=== PATIENT | female | born 1935 | race African-American/Black ===

== ENCOUNTER 2019-01-08 18:46 | Inpatient (IN) | payer MEDICARE, OTHER ==
[~2019-01-08] VITALS: Ht 165.1 cm; Wt 66.7 kg
[~2019-01-08 18:46] MED LIST: ACETAMINOPHEN-1 EAC1 ORAL; ALLOPURINOL5 GM; AMLODIPINE-ATO1 EAC4 ORAL; CALCITRIOL1 MCG/1 ML IV; CEPHALEXIN500 MG ORAL; CLOPIDOGREL75 MG ORAL; DOCUSATE SODIU100 M2 ORAL; LEVOTHYROXINE200 MCG IV; PRAVASTATIN SOD40 M1 ORAL; PROCRIT20000 UNI2 SUBQ
--- NOTE | 2019-01-08 18:50 | NUR ---
ED Nurse Note: Patient brought in by RA [id number] from home c/o increased weakness after dialysis today, Permacath on right upper chest noted. Pt aox4, placed on hospital gown , cont rn cardiac rehab shows afib, and cont pulse ox; pt on room air, saturating 100%; no acute respiratory distress noted at this time. Dialysis schedule MWF per patient. Bilateral lower legs edema noted. IV established on left AC, blood collected and sent down to lab. Will continue to monitor.
--- NOTE | 2019-01-08 18:50 | Emergency Room Report ---
History of Present Illness General Chief Complaint: Generalized Weakness Source: Patient Present Illness HPI 83-year-old female history of dialysis Tuesday presents with generalized weakness today after dialysis no fevers no chills no chest pain she does endorse feeling a little more tired than usual unknown aggravating relieving factors severity is mild, constant patient was brought in by EMS for evaluation Allergies: Coded Allergies: PENICILLINS (Unverified Allergy, Unknown, 10/29/17) Uncoded Allergies: PENICILLIN (Allergy, Unknown, 10/28/17) Patient History Past Medical History: see triage record Last Menstrual Period: n/a Reviewed Nursing Documentation: PMH: Agreed; PSxH: Agreed Nursing Documentation-PMH Past Medical History: No History, Except For Hx Cardiac Problems: Yes - CHF, hyperparathyroidism, hypertriglyceridemia Hx Hypertension: Yes - HTN Hx Diabetes: Yes - Type 2 Hx Cancer: No Hx Gastrointestinal Problems: Yes - Diverticulitis, colon, H.Pylori Hx Neurological Problems: Yes - carpal tunnel syndrome Review of Systems All Other Systems: negative except mentioned in HPI Physical Exam Vital Signs Date Time Temp Pulse Resp B/P (MAP) Pulse Ox O2 Delivery O2 Flow Rate FiO2 01/08/19 18:38 98.2 83 18 138/53 (81) 96 Room Air Sp02 EP Interpretation: reviewed, normal General Appearance: well appearing, no apparent distress, alert Head: normocephalic, atraumatic Eyes: bilateral eye PERRL, bilateral eye EOMI ENT: uvula midline, moist mucus membranes Neck: supple, thyroid normal, supple/symm/no masses Respiratory: lungs clear, no respiratory distress, no retraction, no accessory muscle use Cardiovascular #1: normal peripheral pulses, regular rate, rhythm, no edema, no gallop, no murmur Gastrointestinal: non tender, soft, no guarding, no rebound Musculoskeletal: normal inspection Neurologic: alert, oriented x3 Psychiatric: mood/affect normal Skin: no rash, warm/dry Medical Decision Making Diagnostic Impression: Primary Impression: Episode of generalized weakness Additional Impressions: Symptomatic anemia UTI (urinary tract infection) Qualified Codes: N30.00 - Acute cystitis without hematuria ER Course 83-year-old female presents with generalized weakness of unspecified origin differential diagnosis includes sepsis, UTI, ACS Patient found to have low hemoglobin of 7.1, will transfuse Patient instantly also found to have a UTI will provide ceftriaxone Patient tolerated ceftriaxone dose small fluid bolus of 250 mL Patient admitted to Dr. Wiley Laboratory Tests Test 01/08/19 18:55 01/08/19 19:18 01/08/19 20:40 White Blood Count 4.6 K/UL (4.8-10.8) L Red Blood Count 1.98 M/UL (4.20-5.40) L Hemoglobin 7.2 G/DL (12.0-16.0) L Hematocrit 20.3 % (37.0-47.0) L Mean Corpuscular Volume 103 FL (80-99) H Mean Corpuscular Hemoglobin 36.6 PG (27.0-31.0) H Mean Corpuscular Hemoglobin Concent 35.6 G/DL (32.0-36.0) Red Cell Distribution Width 12.5 % (11.6-14.8) Platelet Count 189 K/UL (150-450) Mean Platelet Volume 6.4 FL (6.5-10.1) L Neutrophils (%) (Auto) 73.6 % (45.0-75.0) Lymphocytes (%) (Auto) 16.1 % (20.0-45.0) L Monocytes (%) (Auto) 7.8 % (1.0-10.0) Eosinophils (%) (Auto) 1.5 % (0.0-3.0) Basophils (%) (Auto) 1.1 % (0.0-2.0) Sodium Level 140 MMOL/L (136-145) Potassium Level 3.9 MMOL/L (3.5-5.1) Chloride Level 99 MMOL/L (98-107) Carbon Dioxide Level 34 MMOL/L (21-32) H Anion Gap 7 mmol/L (5-15) Blood Urea Nitrogen 23 mg/dL (7-18) H Creatinine 2.7 MG/DL (0.55-1.30) H Estimate Glomerular Filtration Rate mL/min (>60) Glucose Level 174 MG/DL (74-106) H Lactic Acid Level 2.30 mmol/L (0.4-2.0) H Pending Calcium Level 8.1 MG/DL (8.5-10.1) L Total Bilirubin 0.7 MG/DL (0.2-1.0) Aspartate Amino Transferase (AST) 120 U/L (15-37) H Alanine Aminotransferase (ALT) 30 U/L (12-78) Alkaline Phosphatase 104 U/L (46-116) Troponin I 0.029 ng/mL (0.000-0.056) Total Protein 7.3 G/DL (6.4-8.2) Albumin 3.5 G/DL (3.4-5.0) Globulin 3.8 g/dL Albumin/Globulin Ratio 0.9 (1.0-2.7) L Lipase 133 U/L (73-393) Urine Color Yellow Urine Appearance Turbid Urine pH 7 (4.5-8.0) Urine Specific [place] 1.005 (1.005-1.035) Urine Protein 4+ (NEGATIVE) H Urine Glucose (UA) Negative (NEGATIVE) Urine Ketones 1+ (NEGATIVE) H Urine Blood 5+ (NEGATIVE) H Urine Nitrite Negative (NEGATIVE) Urine Bilirubin Negative (NEGATIVE) Urine Urobilinogen Normal MG/DL (0.0-1.0) Urine Leukocyte Esterase 3+ (NEGATIVE) H Urine RBC Tntc /HPF (0 - 2) H Urine WBC Tntc /HPF (0 - 2) H Urine Squamous Epithelial Cells Few /LPF (NONE/OCC) Urine Bacteria Many /HPF (NONE) H EKG Diagnostic Results EKG Time: 19:03 EP Interpretation: NSR, rate 91, QTc 4 6-year-old, no acute ST elevations, normal axis Rhythm Strip Diag. Results Rhythm Strip Time: 21:14 EP Interpretation: yes Rate: 84 Rhythm: NSR, no PVC's, no ectopy Chest X-Ray Diagnostic Results Chest X-Ray Diagnostic Results : Chest X-Ray Ordered: Yes # of Views/Limited/Complete: 1 View Indication: Shortness of Breath EP Interpretation: Yes Interpretation: no consolidation, no pneumothorax, no acute cardiopulmonary disease Impression: No acute disease Electronically Signed by: Zac Pruitt MD Last Vital Signs Date Time Temp Pulse Resp B/P (MAP) Pulse Ox O2 Delivery O2 Flow Rate FiO2 01/08/19 18:38 98.2 83 18 138/53 (81) 96 Room Air Disposition: ADMITTED INPATIENT Condition: Stable Zac Pruitt MD Jan 08, 2019 18:50
--- NOTE | 2019-01-08 18:55 | NUR ---
ED Nurse Note: xray at bedside.
[2019-01-08 18:59] VITALS: BP 113/51
--- NOTE | 2019-01-08 19:05 | NUR ---
ED Nurse Note: received patient from promise negrete. patient resting comfortably in bed with no acute distress. ao4. nad. vss. ertech at bedside for ecg. blood collected; sent down to lab. respirations even and unlabored. iv intact and patent. denies pain at the moment.
--- NOTE | 2019-01-08 19:05 | NUR ---
HAND-OFF: Report given to Han Lemons RN.
--- NOTE | 2019-01-08 19:15 | NUR ---
ED Nurse Note: mrsa vre cre swab, urine collected; sent down to lab.
[2019-01-08 19:33] LABS: ANION GAP 7 mmol/L (5-15); BLOOD UREA NITROGEN 23 mg/dL (7-18); CALCIUM 8.1 MG/DL (8.5-10.1); CARBON DIOXIDE 34 MMOL/L (21-32); CHLORIDE 99 MMOL/L (98-107); CREATININE 2.7 MG/DL (0.55-1.30); POTASSIUM 3.9 MMOL/L (3.5-5.1); SODIUM 140 MMOL/L (136-145)
[2019-01-08 19:37] LABS: ALANINE AMINOTRANSFERASE 30 U/L (12-78); ALBUMIN 3.5 G/DL (3.4-5.0); ALBUMIN/GLOBULIN RATIO 0.9 (1.0-2.7); ALKALINE PHOSPHATASE 104 U/L (46-116); ASPARTATE AMINO TRANSFERASE 120 U/L (15-37); BILIRUBIN,TOTAL 0.7 MG/DL (0.2-1.0)
[2019-01-08 19:56] LABS: HEMATOCRIT 20.3 % (37.0-47.0); HEMOGLOBIN 7.2 G/DL (12.0-16.0); MEAN CORPUSCULAR VOLUME 103 FL (80-99); PLATELET COUNT 189 K/UL (150-450); RED BLOOD COUNT 1.98 M/UL (4.20-5.40); RED CELL DISTRIBUTION WIDTH 12.5 % (11.6-14.8); WHITE BLOOD COUNT 4.6 K/UL (4.8-10.8)
[2019-01-08 19:58] LABS: APPEARANCE,URINE TURBID; BILIRUBIN, URINE NEGATIVE (NEGATIVE); GLUCOSE, URINE (UA) NEGATIVE (NEGATIVE); KETONES,URINE 1+ (NEGATIVE); LEUKOCYTE ESTERASE ,URINE 3+ (NEGATIVE); NITRITE,URINE NEGATIVE (NEGATIVE); PH,URINE 7 (4.5-8.0); PROTEIN,URINE 4+ (NEGATIVE); UROBILINOGEN,URINE NORMAL MG/DL (0.0-1.0)
[2019-01-08 19:59] LABS: BASOPHILS % (AUTO) 1.1 % (0.0-2.0); EOSINOPHILS % (AUTO) 1.5 % (0.0-3.0); LYMPHOCYTES % (AUTO) 16.1 % (20.0-45.0); MONOCYTES % (AUTO) 7.8 % (1.0-10.0); NEUTROPHILS % (AUTO) 73.6 % (45.0-75.0)
[2019-01-08] MEDS ORDERED: cefTRIAXone 1 GM in NS 55 ML IVPB ONE (20:00)
[2019-01-08] MEDS ORDERED: NS 250 ML IVPB ONE (20:00)
[2019-01-08 20:01] LABS: COLOR,URINE YELLOW
--- NOTE | 2019-01-08 20:30 | NUR ---
ED Nurse Note: repeat lactic drawn; sent down to lab.
[2019-01-08] MEDS ORDERED: Tylenol #3 tab (300mg/30mg) ORAL PRN (21:30)
--- NOTE | 2019-01-08 21:30 | NUR ---
ED Nurse Note: report given to promise ardon.
[2019-01-08 22:30] VITALS: BP 139/56
--- NOTE | 2019-01-08 22:30 | NUR ---
TRANSFER TO FLOOR: Patient transferred to [facility]-2 as ordered, per jojo ochoa. Report given to reva virgen. patient in stable condition. belongings completed with receiving rn.
--- NOTE | 2019-01-08 22:30 | NUR ---
NURSE NOTES: Received report from ED Han Buchanan RN. Patient was transferred from ED to Telemetry via gurney accompanied by 1 RN and 1 technical assistant with cardiac cath lab technologist, without any incident. Patient is awake, alert, lying in semi vaughan's; resting comfortably. Placed tele box SR on the monitor, 95bpm. Checked IV site and flushed. No erythema, bleeding or infiltration noted. With permacath at right upper chest for hemodialysis. Vital signs stable T=97.7, MN=84, RR=17, BP 139/56, O2 sat=99%. Body assessment done with no skin issues. Bed at lowest position, brakes on, siderailsx3. Call light within reach. Admitting orders done by Dr. Wiley. Will continue to monitor. Addendum: 01/08/19 at 2314 by Sarahy Colindres RN Belongings list checked with KITTY Hinojosa. Patient has [employer]ale[employer] ($100 x 1, $5 x 2, $1 x 6) in wallet at her bedside and refusing to be placed at hospital safety box. Charge nurse and warehouse traffic supervisor made aware.
[2019-01-08] MEDS ORDERED: Carvedilol 6.25mg Tab ORAL SCH (23:45)
[2019-01-09] VITALS: BP 120/49
--- NOTE | 2019-01-09 00:30 | NUR ---
NURSE NOTES: Patient felt nauseated. No pain nor vomiting noted. Paged Dr. Wiley, awaiting for callback.
--- NOTE | 2019-01-09 00:45 | History and Physical Report ---
DATE OF ADMISSION: 01/08/2019 HISTORY OF PRESENT ILLNESS: The patient is an 83-year-old female. She has a history of end-stage renal disease on chronic hemodialysis, hypertension, diabetes, peripheral artery disease, and hypothyroidism. She was brought in by family members with complaints of generalized weakness, malaise, and near syncope. According to the patient, she was well. The night prior to admission, she had a near syncopal episode. She felt dizzy and weak. Her family tried to take her to the emergency room, but she refused. She went to dialysis and after returning home from dialysis again felt weak and nearly passed out. The patient denies any fevers or chills. She has had no chest pain. She had a single episode of vomiting the night prior to admission. Her last bowel movement was several days ago. She denies any abdominal pain. On evaluation in the emergency room, laboratory tests were significant for hemoglobin of 7.2. She had evidence of urinary tract infection. She denies any melena or bright red blood per rectum. The patient is currently in the process of being transfused. She has been started on antibiotic therapy for possible urinary tract infection and possible sepsis. She is now admitted for further evaluation and care. PAST MEDICAL HISTORY: Includes a history of pleurodesis, hysterectomy, left lower extremity femoral bypass, and bronchoscopy. Positive history of breast cancer. FAMILY HISTORY: Significant for breast cancer. SOCIAL HISTORY: Negative for alcohol or drugs. The patient was previously a smoker. REVIEW OF SYSTEMS: GENERAL: Positive malaise and weakness. HEENT: No headaches or visual changes. CARDIOPULMONARY: No chest pain or shortness of breath. GASTROINTESTINAL: Positive nausea and vomiting. No melena or bright red blood per rectum. GENITOURINARY: No urgency or frequency. MUSCULOSKELETAL: No joint pain or swelling. NEUROLOGICAL: No evidence of seizures. PHYSICAL EXAMINATION: VITAL SIGNS: Temperature was 98.2, pulse 83, respirations 18, and blood pressure 113/51. GENERAL: The patient is well-developed, in no apparent distress. HEART: Regular rate and rhythm. LUNGS: Clear. ABDOMEN: Soft, nontender, and nondistended. EXTREMITIES: Without clubbing, cyanosis, or edema. There is a well-healed scar on the left lower extremity. There is a chest wall PermCath noted. LABORATORY DATA: UA showed too numerous to count wbc's. White count 4, hemoglobin 7.2, hematocrit 20, and platelets of 189,000. Sodium 140, potassium 3.9, chloride 99, bicarb 34, BUN 23, and creatinine 2.7. ASSESSMENT: This is a pleasant female with a history of end-stage renal disease, diabetes, hypertension, peripheral artery disease, and prior history of breast cancer, admitted with complaints of dizziness, nausea, and vomiting suspect secondary to urinary tract infection, possible early sepsis, and anemia. PLAN: Transfuse one unit of packed red blood cells. Check stool for occult blood and iron panel. Epogen will be started. Broad spectrum antibiotic therapy. ID, Renal and Cardiology consultations to be obtained. We will continue outpatient cardiac and diabetic regimen. Plan of care has been discussed with the patient at the bedside. William Wiley M.D. DR: HUDSON JOB#: [id number] CC:
--- NOTE | 2019-01-09 00:45 | NUR ---
NURSE NOTES: Per Dr. Mahan, to give Zofran 4mg IV Q6 PRN for N/V. Noted and carried out.
[2019-01-09] MEDS: Carvedilol 6.25mg Tab ORAL SCH ×3 (01:08→22:49)
--- NOTE | 2019-01-09 02:02 | NUR ---
NURSE NOTES: Resting throughout the night. No significant change of condition noted. Will continue to monitor.
[2019-01-09 04:00] VITALS: BP 103/45
[2019-01-09 04:55] LABS: HEMATOCRIT 16.8 % (37.0-47.0); MEAN CORPUSCULAR VOLUME 107 FL (80-99); PLATELET COUNT 155 K/UL (150-450); RED BLOOD COUNT 1.58 M/UL (4.20-5.40); RED CELL DISTRIBUTION WIDTH 14.3 % (11.6-14.8); WHITE BLOOD COUNT 3.7 K/UL (4.8-10.8)
[2019-01-09 05:24] LABS: ANION GAP 2 mmol/L (5-15); BLOOD UREA NITROGEN 30 mg/dL (7-18); CALCIUM 7.1 MG/DL (8.5-10.1); CARBON DIOXIDE 36 MMOL/L (21-32); CHLORIDE 101 MMOL/L (98-107); CREATININE 3.5 MG/DL (0.55-1.30); POTASSIUM 4.3 MMOL/L (3.5-5.1); SODIUM 139 MMOL/L (136-145)
--- NOTE | 2019-01-09 05:25 | NUR ---
NURSE NOTES: Patient's blood type and screen were cross matched at ED and telemetry. However, patient's blood type was inconsistent with the result. Lab cannot dispense blood until blood result is recorrected in the system. Charge nurse and nursing patient registration supervisor made aware. Dr. Wiley made aware.
[2019-01-09 05:28] LABS: ALANINE AMINOTRANSFERASE 22 U/L (12-78); ALKALINE PHOSPHATASE 77 U/L (46-116); ASPARTATE AMINO TRANSFERASE 89 U/L (15-37); BILIRUBIN,TOTAL 0.4 MG/DL (0.2-1.0)
[2019-01-09 05:43] LABS: HEMOGLOBIN 5.6 G/DL (12.0-16.0)
--- NOTE | 2019-01-09 05:45 | NUR ---
NURSE NOTES: Lab called and spoke with Ke, Hgb 5.6. Paged Dr. Wiley, awaiting for callback.
--- NOTE | 2019-01-09 05:48 | NUR ---
NURSE NOTES: Per Dr. Wiley, to transfuse blood type O. Noted and carried out.
[2019-01-09 05:51] LABS: % IRON SATURATION 32 % (15-50); IRON 55 ug/dL (50-175); TOTAL IRON BINDING CAPACITY 171 ug/dL (250-450)
--- NOTE | 2019-01-09 06:20 | NUR ---
NURSE NOTES: Vital signs prior to transfusion, T=99.1, IN= 79, RR=16, YZ=034/50. Transfusing 1 "u" PRBC type O positive. No signs of distress noted. Will continue to monitor.
[2019-01-09] MEDS: Levothyroxine 25mcg tab ORAL SCH (06:30)
[2019-01-09] MEDS: NovoLOG Insulin Flexpen SUBQ SCH ×4 (06:31→21:00)
--- NOTE | 2019-01-09 06:35 | NUR ---
NURSE NOTES: 15 minutes after transfusion, vital signs taken T=99.0, NE=81, RR=17, EZ=204/48, O2 sat 99%. No signs of acute distress noted. No s/sx of adverse transfusion reaction. Will continue to monitor.
--- NOTE | 2019-01-09 06:45 | Consultation ---
DATE OF CONSULTATION: 01/08/2019 CARDIOLOGY CONSULTATION CONSULTING PHYSICIAN: Angel Mahan M.D. REFERRING PHYSICIAN: William Wiley M.D. REASON: Near syncope. HISTORY OF PRESENT ILLNESS: This 83-year-old female with end-stage renal disease on hemodialysis had weakness, malaise, and near syncope on the day prior to admission. She had another episode on the day of admission following dialysis. Her symptoms were not associated with any chest pain, palpitations, shortness of breath, fevers, or chills, but she did have some vomiting. In the emergency room, her evaluation was notable for signs of a urinary tract infection and a hemoglobin of 7.2. Cardiovascular consult has been requested. PAST MEDICAL HISTORY: Includes end-stage renal disease, hypertension, diabetes mellitus type 2, diabetic neuropathy, diabetic microangiopathy, hypothyroidism, anemia of chronic kidney disease, status post hysterectomy, history of left lower extremity femoral bypass, breast cancer, history of pleurodesis. SOCIAL HISTORY: Prior smoker. No alcohol or substance abuse. MEDICATIONS: Reviewed and reconciled. ALLERGIES: None known. REVIEW OF SYSTEMS: All systems negative other than outlined above. Of note, an echocardiogram done here in 2018 revealed a normal ejection fraction with mild concentric hypertrophy and no significant valvular disease. PHYSICAL EXAMINATION: VITAL SIGNS: Blood pressure 113/51, heart rate 83, respirations 18, afebrile. HEENT: Normocephalic, atraumatic. Conjunctivae pink. Sclerae are anicteric. Oropharynx clear. Mucous membranes moist. NECK: Supple. Jugular venous pressure normal. LUNGS: Clear. CARDIAC: Regular rhythm rate. Normal S1, S2 with a 1/6 systolic murmur at base. ABDOMEN: Soft, nontender. EXTREMITIES: No edema. PermCath site clean and dry. Left lower extremity scar is healed. IMPRESSION: Near syncope, likely due to hypovolemia related to vomiting and acute on chronic anemia. The possibility of sepsis associated with her urinary tract infection must be considered as well. Little evidence of an acute primary cardiovascular event at this time. PLAN: 1. Agree with packed red blood cell transfusion. 2. Anemia panel. 3. Add Epogen. 4. Hemodialysis with ultrafiltration. 5. Volume support as needed. 6. Antimicrobials. 7. Check thyroid panel. 8. Monitor orthostatics. 9. Avoid any antihypertensive therapy for now. Angel Mahan M.D. DR: ZAHIRA JOB#: [id number] CC:
--- NOTE | 2019-01-09 06:57 | NUR ---
NURSE NOTES: Per Dr. Wiley, to transfuse another 1 "u" PRBC blood. Will endorsed to AM RN.
--- NOTE | 2019-01-09 07:05 | NUR ---
HAND-OFF: Report given to KITTY Bertrand. Patient is still on going blood transfusion 1 "u" PRBC O positive. No signs of distress noted. Vital signs stable. Plan of care endorsed.
--- NOTE | 2019-01-09 07:27 | NUR ---
NURSE NOTES: Received report from KITTY Weathers. Pt in bed, asleep, respirations unlabored, no apparent distress noted, pt receiving blood transfusion of 1 unit PRBCs, plan for another unit transfusion once 1st is complete, no apparent reaction noted, bed in lowest position, call light within reach.
[2019-01-09 08:00] VITALS: BP_SYST 102; BP_SYST 103; BP_DIAS 45; BP_DIAS 53
--- NOTE | 2019-01-09 08:11 | General Progress Note ---
Assessment/Plan Assessment/Plan: GI CONSULT Dictated Assessment - symptomatic anemia, presumed acute - anemia, likely in part due to CRF - abnormal U/A - ESRD / HD Recommendations - laxative - PPI - check stool OB - agree with transfusion - EGD / colon once cleared by Med/Cardiology Thank you Chavez Silvestre MD Subjective Allergies: Coded Allergies: PENICILLINS (Unverified Allergy, Unknown, 10/29/17) Uncoded Allergies: PENICILLIN (Allergy, Unknown, 10/28/17) Objective Last 24 Hour Vital Signs Date Time Temp Pulse Resp B/P (MAP) Pulse Ox O2 Delivery O2 Flow Rate FiO2 01/09/19 04:00 97.8 79 18 103/45 (64) 100 01/09/19 04:00 74 01/09/19 01:08 78 120/49 01/09/19 00:00 97.8 78 17 120/49 (72) 99 01/09/19 00:00 82 01/08/19 23:06 Room Air 01/08/19 22:30 98.2 79 18 113/51 100 Room Air 01/08/19 22:30 97.7 84 17 139/56 (83) 99 01/08/19 22:30 90 01/08/19 18:59 98.2 79 18 113/51 100 Room Air 01/08/19 18:59 83 18 Room Air 01/08/19 18:38 98.2 83 18 138/53 (81) 96 Room Air Intake and Output 01/08/19 01/09/19 19:00 07:00 Intake Total 60 ml Balance 60 ml Intake Oral 60 ml # Voids 1 Laboratory Tests 01/08/19 18:55: White Blood Count 4.6L, Red Blood Count 1.98L, Hemoglobin 7.2L, Hematocrit 20.3L , Mean Corpuscular Volume 103H, Mean Corpuscular Hemoglobin 36.6H, Mean Corpuscular Hemoglobin Concent 35.6, Red Cell Distribution Width 12.5, Platelet Count 189, Mean Platelet Volume 6.4L, Neutrophils (%) (Auto) 73.6, Lymphocytes ( %) (Auto) 16.1L, Monocytes (%) (Auto) 7.8, Eosinophils (%) (Auto) 1.5, Basophils (%) (Auto) 1.1, Sodium Level 140, Potassium Level 3.9, Chloride Level 99, Carbon Dioxide Level 34H, Anion Gap 7, Blood Urea Nitrogen 23H, Creatinine 2.7H, Estimat Glomerular Filtration Rate , Glucose Level 174H, Lactic Acid Level 2.30H, Calcium Level 8.1L, Total Bilirubin 0.7, Aspartate Amino Transf ( AST/SGOT) 120H, Alanine Aminotransferase (ALT/SGPT) 30, Alkaline Phosphatase 104 , Troponin I 0.029, Total Protein 7.3, Albumin 3.5, Globulin 3.8, Albumin/ Globulin Ratio 0.9L, Lipase 133 01/08/19 19:18: Urine Color Yellow, Urine Appearance Turbid, Urine pH 7, Urine Specific [place] 1.005, Urine Protein 4+H, Urine Glucose (UA) Negative, Urine Ketones 1+H, Urine Blood 5+H, Urine Nitrite Negative, Urine Bilirubin Negative, Urine Urobilinogen Normal, Urine Leukocyte Esterase 3+H, Urine RBC TntcH, Urine WBC TntcH, Urine Squamous Epithelial Cells Few, Urine Bacteria ManyH 01/08/19 20:40: Lactic Acid Level 1.60 01/09/19 04:40: White Blood Count 3.7L, Red Blood Count 1.58L, Hemoglobin 5.6*L, Hematocrit 16.8L, Mean Corpuscular Volume 107H, Mean Corpuscular Hemoglobin 35.7H, Mean Corpuscular Hemoglobin Concent 33.5, Red Cell Distribution Width 14.3, Platelet Count 155, Mean Platelet Volume 5.2L, Neutrophils (%) (Auto) , Lymphocytes (%) ( Auto) , Monocytes (%) (Auto) , Eosinophils (%) (Auto) , Basophils (%) (Auto) , Sodium Level 139, Potassium Level 4.3, Chloride Level 101, Carbon Dioxide Level 36H, Anion Gap 2L, Blood Urea Nitrogen 30H, Creatinine 3.5H, Estimat Glomerular Filtration Rate , Glucose Level 127H, Lactic Acid Level 1.10, Calcium Level 7.1L , Total Bilirubin 0.4, Aspartate Amino Transf (AST/SGOT) 89H, Alanine Aminotransferase (ALT/SGPT) 22, Alkaline Phosphatase 77, Total Protein 6.0L, Albumin 3.0L, Globulin 3.0, Albumin/Globulin Ratio 1.0, Neutrophils % (Manual) [ Pending], Lymphocytes % (Manual) [Pending], Platelet Estimate [Pending], Platelet Morphology [Pending], Iron Level 55, Total Iron Binding Capacity 171L, Percent Iron Saturation 32, Unsaturated Iron Binding 116, Pro-B-Type Natriuretic Peptide 13410M, Vitamin B12 Level 464, Folate 48.2 Height (Feet): 5 Height (Inches): 5.00 Weight (Pounds): 147 Chavez Silvestre MD Jan 09, 2019 08:11
[2019-01-09] MEDS ORDERED: Sorbitol Solution UD 30ml ORAL SCH (08:15)
--- NOTE | 2019-01-09 09:00 | NUR ---
NURSE NOTES: RN held Plavix today, per Dr. Silvestre
[2019-01-09] MEDS: Allopurinol 100mg Tab ORAL SCH (09:12)
[2019-01-09] MEDS: Docusate 100mg cap ORAL SCH (09:12)
[2019-01-09] MEDS: Aspirin EC 81mg tab ORAL SCH (09:12)
[2019-01-09 11:41] VITALS: BP 105/61
--- NOTE | 2019-01-09 14:49 | Diagnostic Imaging Report ---
Indication: Dyspnea Comparison: 10/28/2017 A single view chest radiograph was obtained. Findings: There is elevation of the left hemidiaphragm which is chronic with evidence of some underlying scarring of the lung parenchyma. Heart is borderline enlarged. Aorta is calcified and mildly ectatic. There is a right permacath in good position. Bones are osteopenic. IMPRESSION: No acute findings
--- NOTE | 2019-01-09 15:53 | General Progress Note ---
Assessment/Plan Problem List: (1) GIB (gastrointestinal bleeding) ICD Codes: K92.2 - Gastrointestinal hemorrhage, unspecified SNOMED: 70401368 (2) CAD (coronary artery disease) ICD Codes: I25.10 - Atherosclerotic heart disease of [place] coronary artery without angina pectoris SNOMED: 10551160 (3) HTN (hypertension) ICD Codes: I10 - Essential (primary) hypertension SNOMED: 64157411 (4) DM2 (diabetes mellitus, type 2) ICD Codes: E11.9 - Type 2 diabetes mellitus without complications SNOMED: 65969720 (5) UTI (urinary tract infection) ICD Codes: N39.0 - Urinary tract infection, site not specified SNOMED: 70400722 Qualifiers: Qualified Codes: N30.00 - Acute cystitis without hematuria (6) Symptomatic anemia ICD Codes: D64.9 - Anemia, unspecified SNOMED: 240843953 (7) Episode of generalized weakness ICD Codes: R53.1 - Weakness SNOMED: 11615806 Status: stable Assessment/Plan: transfuse monitor h/h stool ob cards and gi appreciated. ID eval for abx HD per renal Subjective ROS Limited/Unobtainable: No Constitutional: Reports: malaise, weakness HEENT: Reports: no symptoms Cardiovascular: Reports: no symptoms Respiratory: Reports: no symptoms Gastrointestinal/Abdominal: Reports: no symptoms Genitourinary: Reports: no symptoms Neurologic/Psychiatric: Reports: no symptoms Endocrine: Reports: no symptoms Hematologic/Lymphatic: Reports: anemia Allergies: Coded Allergies: PENICILLINS (Unverified Allergy, Unknown, 10/29/17) Uncoded Allergies: PENICILLIN (Allergy, Unknown, 10/28/17) All Systems: reviewed and negative except above Subjective weak. h/h lower. no signs of bleeding. states she feel better. Objective Last 24 Hour Vital Signs Date Time Temp Pulse Resp B/P (MAP) Pulse Ox O2 Delivery O2 Flow Rate FiO2 01/09/19 11:41 96.7 78 20 105/61 (76) 99 01/09/19 11:39 Room Air 01/09/19 11:30 85 01/09/19 09:00 73 102/53 01/09/19 09:00 73 102/53 01/09/19 08:28 Room Air 01/09/19 08:04 79 01/09/19 08:00 99.0 73 18 102/53 (69) 96 01/09/19 04:00 97.8 79 18 103/45 (64) 100 01/09/19 04:00 74 01/09/19 01:08 78 120/49 01/09/19 00:00 97.8 78 17 120/49 (72) 99 01/09/19 00:00 82 01/08/19 23:06 Room Air 01/08/19 22:30 98.2 79 18 113/51 100 Room Air 01/08/19 22:30 97.7 84 17 139/56 (83) 99 01/08/19 22:30 90 01/08/19 18:59 98.2 79 18 113/51 100 Room Air 01/08/19 18:59 83 18 Room Air 01/08/19 18:38 98.2 83 18 138/53 (81) 96 Room Air Intake and Output 01/08/19 01/09/19 19:00 07:00 Intake Total 180 ml Balance 180 ml Intake Oral 180 ml # Voids 1 Laboratory Tests 01/08/19 18:55: White Blood Count 4.6L, Red Blood Count 1.98L, Hemoglobin 7.2L, Hematocrit 20.3L , Mean Corpuscular Volume 103H, Mean Corpuscular Hemoglobin 36.6H, Mean Corpuscular Hemoglobin Concent 35.6, Red Cell Distribution Width 12.5, Platelet Count 189, Mean Platelet Volume 6.4L, Neutrophils (%) (Auto) 73.6, Lymphocytes ( %) (Auto) 16.1L, Monocytes (%) (Auto) 7.8, Eosinophils (%) (Auto) 1.5, Basophils (%) (Auto) 1.1, Sodium Level 140, Potassium Level 3.9, Chloride Level 99, Carbon Dioxide Level 34H, Anion Gap 7, Blood Urea Nitrogen 23H, Creatinine 2.7H, Estimat Glomerular Filtration Rate , Glucose Level 174H, Lactic Acid Level 2.30H, Calcium Level 8.1L, Total Bilirubin 0.7, Aspartate Amino Transf ( AST/SGOT) 120H, Alanine Aminotransferase (ALT/SGPT) 30, Alkaline Phosphatase 104 , Troponin I 0.029, Total Protein 7.3, Albumin 3.5, Globulin 3.8, Albumin/ Globulin Ratio 0.9L, Lipase 133 01/08/19 19:18: Urine Color Yellow, Urine Appearance Turbid, Urine pH 7, Urine Specific [place] 1.005, Urine Protein 4+H, Urine Glucose (UA) Negative, Urine Ketones 1+H, Urine Blood 5+H, Urine Nitrite Negative, Urine Bilirubin Negative, Urine Urobilinogen Normal, Urine Leukocyte Esterase 3+H, Urine RBC TntcH, Urine WBC TntcH, Urine Squamous Epithelial Cells Few, Urine Bacteria ManyH 01/08/19 20:40: Lactic Acid Level 1.60 01/09/19 04:40: White Blood Count 3.7L, Red Blood Count 1.58L, Hemoglobin 5.6*L, Hematocrit 16.8L, Mean Corpuscular Volume 107H, Mean Corpuscular Hemoglobin 35.7H, Mean Corpuscular Hemoglobin Concent 33.5, Red Cell Distribution Width 14.3, Platelet Count 155, Mean Platelet Volume 5.2L, Neutrophils (%) (Auto) , Lymphocytes (%) ( Auto) , Monocytes (%) (Auto) , Eosinophils (%) (Auto) , Basophils (%) (Auto) , Sodium Level 139, Potassium Level 4.3, Chloride Level 101, Carbon Dioxide Level 36H, Anion Gap 2L, Blood Urea Nitrogen 30H, Creatinine 3.5H, Estimat Glomerular Filtration Rate , Glucose Level 127H, Lactic Acid Level 1.10, Calcium Level 7.1L , Total Bilirubin 0.4, Aspartate Amino Transf (AST/SGOT) 89H, Alanine Aminotransferase (ALT/SGPT) 22, Alkaline Phosphatase 77, Total Protein 6.0L, Albumin 3.0L, Globulin 3.0, Albumin/Globulin Ratio 1.0, Differential Total Cells Counted 100, Neutrophils % (Manual) 79H, Lymphocytes % (Manual) 17L, Monocytes % (Manual) 4, Eosinophils % (Manual) 0, Basophils % (Manual) 0, Band Neutrophils 0, Platelet Estimate Adequate, Platelet Morphology Normal, Hypochromasia 1+, Anisocytosis 1+, Macrocytosis 1+, Iron Level 55, Total Iron Binding Capacity 171L, Percent Iron Saturation 32, Unsaturated Iron Binding 116 , Pro-B-Type Natriuretic Peptide 22851C, Vitamin B12 Level 464, Folate 48.2 01/09/19 11:30: Stool Occult Blood Negative 01/09/19 15:00: White Blood Count [Pending], Red Blood Count [Pending], Hemoglobin [Pending], Hematocrit [Pending], Mean Corpuscular Volume [Pending], Mean Corpuscular Hemoglobin [Pending], Mean Corpuscular Hemoglobin Concent [Pending], Red Cell Distribution Width [Pending], Platelet Count [Pending], Mean Platelet Volume [ Pending], Neutrophils (%) (Auto) [Pending], Lymphocytes (%) (Auto) [Pending], Monocytes (%) (Auto) [Pending], Eosinophils (%) (Auto) [Pending], Basophils (%) (Auto) [Pending] Height (Feet): 5 Height (Inches): 5.00 Weight (Pounds): 147 General Appearance: WD/WN, alert Neck: supple Cardiovascular: regular rhythm Respiratory/Chest: lungs clear Abdomen: normal bowel sounds, non tender, soft, no organomegaly Edema: no edema noted Arm (L), no edema noted Arm (R), no edema noted Leg (L), no edema noted Leg (R), no edema noted Pedal (L), no edema noted Pedal (R), no edema noted Generalized William Wiley MD Jan 09, 2019 15:53
[2019-01-09 15:59] LABS: BASOPHILS % (AUTO) 1.7 % (0.0-2.0); EOSINOPHILS % (AUTO) 2.1 % (0.0-3.0); HEMATOCRIT 24.1 % (37.0-47.0); HEMOGLOBIN 8.8 G/DL (12.0-16.0); LYMPHOCYTES % (AUTO) 21.6 % (20.0-45.0); MEAN CORPUSCULAR VOLUME 90 FL (80-99); NEUTROPHILS % (AUTO) 63.5 % (45.0-75.0); PLATELET COUNT 143 K/UL (150-450); RED BLOOD COUNT 2.67 M/UL (4.20-5.40); RED CELL DISTRIBUTION WIDTH 17.9 % (11.6-14.8); WHITE BLOOD COUNT 4.4 K/UL (4.8-10.8)
[2019-01-09 16:00] VITALS: BP 122/63
--- NOTE | 2019-01-09 16:00 | Consultation ---
DATE OF CONSULTATION: 01/09/2019 CHIEF COMPLAINT: I was asked to see this patient by Dr. William Wiley for evaluation of anemia. HISTORY OF PRESENT ILLNESS: The patient is a pleasant 83-year-old woman was admitted to the hospital due to episode of dizziness and near syncope as well as vomiting. She came to the hospital where she was found to have severe anemia as well as urinary tract infection. She has been admitted and this morning because of worsening anemia, she has been transfused. The patient stated that she does not have any hematochezia, melena, or abdominal pain. She does have some degree of constipation which is apparently new for her over the past few months ago. She smokes tobacco every three days. She states she has not had endoscopy or colonoscopy. Her CBC in the computer was normal. She does have renal failure and she is on dialysis three times a week for the past 3 years. She has no family history of malignancy. PAST MEDICAL HISTORY: History of end-stage renal disease, hypertension, diabetes, diabetic neuropathy, diabetic microangiopathy, hypothyroidism, anemia, status post hysterectomy, left lower extremity femoral bypass procedure, history of breast cancer. FAMILY HISTORY: Negative for malignancies or gastrointestinal disorders. SOCIAL HISTORY: The patient is a former smoker but she does not drink alcohol. MEDICATIONS: Please see the chart list for details. ALLERGIES: Noted. REVIEW OF SYSTEMS: Otherwise negative. PHYSICAL EXAMINATION: GENERAL: This is a pleasant woman, seen in her room. HEENT: Normocephalic and atraumatic. Sclerae anicteric. Dentition was fair. NECK: Supple. CHEST: Clear to auscultation. CARDIOVASCULAR: Revealed regular rate. There is a hemodialysis catheter in the right upper chest. ABDOMEN: Soft. Good bowel sounds. There is no organomegaly. EXTREMITIES: Revealed no edema. LABORATORY DATA: Noted. ASSESSMENT: This patient presents with severe and symptomatic anemia requiring three units of blood transfusion today. The differential diagnosis would certainly include gastrointestinal losses. The patient has not had endoscopy or colonoscopy and therefore it may be reasonable to proceed with these evaluations once the patient is cleared from a medical and cardiac standpoint . Plavix will also need to be held for two days prior to the procedure. The indications, risks, alternatives, and complications of procedures were explained to the patient and all questions were answered. RECOMMENDATIONS: 1. Agree with blood transfusion. 2. Proton pump inhibitor. 3. Hold Plavix if okay from a cardiac standpoint. 4. Monitor CBC. 5. Bowel regimen. 6. Endoscopy and colonoscopy later this week. Thank you for asking me to participate in the care of this patient. Chavez Silvestre M.D. DR: Juanpablo JOB#: [id number] CC: ISABELL
--- NOTE | 2019-01-09 17:00 | Consultation ---
DATE OF CONSULTATION: 01/09/2019 INFECTIOUS DISEASE CONSULTATION CONSULTING PHYSICIAN: Johan Rudolph M.D. REFERRING PHYSICIAN: William Wiley M.D. REASON FOR CONSULTATION: Urinary tract infection. HISTORY OF PRESENT ILLNESS: This is an 83-year-old lady with history of diabetes, hypertension, renal failure on dialysis, hypothyroidism, and peripheral arterial disease, who came in with weakness, malaise, and near syncope. She also had dizziness and weakness. She has some nausea. She was found to have urinary tract infection and an Infectious Disease consultation has been obtained for antibiotics. PAST MEDICAL HISTORY: 1. History of hysterectomy. 2. History of pleurodesis. 3. History of breast cancer. 4. History of left lower extremity femoral bypass. 5. History of bronchoscopy. 6. Diabetes. 7. Hypertension. FAMILY HISTORY: Positive for breast cancer. SOCIAL HISTORY: She does not smoke, drink, or use drugs. REVIEW OF SYSTEMS: RESPIRATORY: She denies any fever, chills, cough, shortness of breath, or chest pain. CARDIAC: No chest pain. No palpitations. No dizziness. No syncope. GASTROINTESTINAL: She had nausea and vomiting. No abdominal pain or diarrhea. MEDICATIONS: As an inpatient, she is on Epogen, pravastatin, ceftriaxone, docusate, amlodipine, allopurinol, aspirin, levothyroxine, insulin, gabapentin, carvedilol, Zofran, and Tylenol No. 3. ALLERGIES: She is allergic to penicillin, but is tolerating ceftriaxone. PHYSICAL EXAMINATION: VITAL SIGNS: Temperature 99, pulse 73, respiratory rate 18, and blood pressure 102/53. O2 saturation of 96%. HEENT: Pupils are equally reactive to light and accommodation. Mouth appears clean without thrush. NECK: Supple. No adenopathy. No JVD. CARDIOVASCULAR: Regular rate and rhythm. No murmurs. LUNGS: Clear to auscultation bilaterally. No crackles. No wheezes. ABDOMEN: Soft and nontender. No organomegaly. EXTREMITIES: No cyanosis, no clubbing, no edema. Right subclavian catheter noted. LABORATORY AND DIAGNOSTIC DATA: White count 3.7, hemoglobin 5.6, hematocrit 16.8, MCV 107, and platelet count 155,000. Sodium 139, potassium 4.3, chloride 101, bicarb 36, BUN 30, and creatinine 3.5. Glucose 127. Calcium 7.1. Total bilirubin 0.4, AST 89, ALT 22, and alkaline phosphatase 77. Beta-natriuretic peptide 26,839. Total protein 6, albumin 3. UA is showing wbc's too numerous to count. Urine cultures are negative so far. ASSESSMENT: This is an 83-year-old lady with history of diabetes, hypertension and breast cancer, who comes in with weakness and malaise and is found to have, 1. Urinary tract infection. Cultures are negative so far. 2. Renal failure, on dialysis. 3. Diabetes. 4. Hypertension. PLAN: 1. Continue ceftriaxone given penicillin allergy. 2. We will follow up cultures and adjust antibiotics accordingly. I would like to thank Dr. Wiley for this consultation. Johan Rudolph M.D. DR: MARTÍN JOB#: [id number] CC:
--- NOTE | 2019-01-09 18:52 | NUR ---
NURSE NOTES: Called [facility] to set up Dialysis 01/10/2019 6a-6p
--- NOTE | 2019-01-09 19:20 | NUR ---
NURSE NOTES: Received report from KITTY Bertrand. Patient is awake, lying in semi vaughan's; resting comfortably. A/Ox4. Denies pain at this time. No signs of acute distress noted. Checked IV site and flushed. No erythema, bleeding or infiltration noted. Bed at lowest position, brakes on, siderailsx3. Call light within reach. Will continue to monitor.
--- NOTE | 2019-01-09 19:20 | NUR ---
HAND-OFF: Report given to KITTY Weathers.
[2019-01-09 20:00] VITALS: BP 127/62
[2019-01-09] MEDS ORDERED: cefTRIAXone 1 GM in D5W 55 ML IVPB SCH (20:00)
--- NOTE | 2019-01-09 23:30 | Consultation ---
DATE OF CONSULTATION: 01/09/2019 REASON FOR CONSULTATION: End-stage renal disease. HISTORY OF PRESENT ILLNESS: The patient is an 83-year-old lady, who has a history of diabetes, end-stage renal disease, who has been on dialysis 1 to 2 years, and dialysis on January 08, 2019. The patient apparently had a near syncopal episode, was dizzy, fell down, and came to the emergency room. She was found to have anemia with hemoglobin of 7.2 and pyuria. No gastrointestinal bleeding. She was in [facility] recently in early November and was admitted after a missed dialysis, noncompliance, and hypertensive urgency due to elevated blood pressure and missed dialysis. PAST MEDICAL HISTORY: Significant for secondary hyperparathyroidism and she has had a low calcium in the past because of medication Parsabiv, which is given for hyperparathyroidism. She had metastatic breast cancer and is on palbociclib. She has also had recurrent hydropneumothorax, malignant right effusions, and has been on Ibrance followed by her oncologist. SURGERIES: Include pleurodesis, hysterectomy, left leg femoral bypass, and bronchoscopy. MEDICATIONS: Reviewed on the computer. ALLERGIES: Apparently, she had allergy to penicillin in her 20s. It is not clear if this is current. HABITS: She smoked in the past. Quit many years ago. No alcohol or drugs. SOCIAL HISTORY: She lives at home with the family. SYSTEM REVIEW: HEAD, EYES, EARS, NOSE, AND THROAT: Vision and hearing is good. ENDOCRINE: History of diabetes, on insulin, but stopped for many years with stable glucoses. PULMONARY: No current shortness of breath or palpitations. She has had pleural effusions. CARDIAC: No angina or NE. GASTROINTESTINAL: She has had intermittent nausea and vomiting. No rectal bleeding. GENITOURINARY: She denies dysuria at this time, but had pyuria. MUSCULOSKELETAL: She has had peripheral vascular disease and generalized weakness in her lower extremities. Walks with a cane or a walker. NEUROLOGIC: No history of stroke or seizure. PHYSICAL EXAMINATION: GENERAL: The patient is alert, elderly lady, lying in bed, in no acute distress. VITAL SIGNS: Temperature 97, pulse 78, respirations 18, and blood pressure 122/63. HEENT: Sclerae are nonicteric. Ocular motion is intact in all directions. Oral mucosa moist. NECK: No adenopathy or thyroid enlargement. LUNGS: Clear. BREASTS: Atrophic. I do not feel any masses. CHEST: There is a right-sided dialysis PermCath. LUNGS: Clear. HEART: Regular rhythm. I hear no murmur. ABDOMEN: Soft. I am unable to feel liver or spleen. EXTREMITIES: Trace edema. There are degenerative changes in the knees. NEUROLOGIC: She is alert and oriented. Cranial nerves are intact. PERTINENT LABS: Show hemoglobin 7.2, 5.6, and 8.8 serially. The sodium 139, potassium 4.3, BUN 30, creatinine 3.5, and glucose 127. AST is 89. Albumin is 3. BNP is 26,839. Chest x-ray was done showing no acute findings. IMPRESSION: 1. End-stage renal disease. 2. Anemia of renal disease, possibly occult bleeding. 3. Metastatic breast cancer. 4. History of a fall. 5. History of near syncope. 6. Moderate protein-calorie malnutrition. 7. Elevated BNP. 8. Low calcium 7.1 with an albumin of 3.0, which is low normal. PLAN: At this time, we will arrange her dialysis. She is eager to return home. She is not significantly fluid overloaded at this time. We will try to avoid hypotension on dialysis. All orders have been reviewed for end-stage renal disease. Zeus Brice M.D. DR: AMINATA JOB#: [id number] CC:
[2019-01-10] VITALS: BP 111/55
--- NOTE | 2019-01-10 00:49 | NUR ---
NURSE NOTES: Resting throughout the night. No significant change of condition noted. Will continue to monitor.
--- NOTE | 2019-01-10 00:50 | NUR ---
NURSE NOTES: Called [facility] and spoke with Malu for hemodialysis schedule today. Awaiting for section hand RN to callback.
[2019-01-10 04:00] VITALS: BP 118/41
[2019-01-10] MEDS: NovoLOG Insulin Flexpen SUBQ SCH ×2 (05:27→11:30)
[2019-01-10] MEDS: Levothyroxine 25mcg tab ORAL SCH (05:29)
[2019-01-10] MEDS ORDERED: Heparin Sod 1000 units/ml 10ml IV PRN ×2 (06:00→14:45)
--- NOTE | 2019-01-10 06:15 | Progress Note ---
DATE: 01/09/2019 CARDIOLOGY PROGRESS NOTE SUBJECTIVE: The patient was seen and evaluated. She was made aware of her current condition and plan of care. Feels weak, nauseous with no chest pain or shortness of breath. OBJECTIVE: VITAL SIGNS: Blood pressure of 105/61, pulse 78, and respirations 20. LUNGS: Clear. CARDIAC: Regular. Normal S1, S2 with a 1/6 systolic apical murmur. ABDOMEN: Soft. EXTREMITIES: No edema. LABORATORY AND DIAGNOSTIC DATA: Monitor sinus with rare atrial and ventricular ectopics. Laboratories noted. IMPRESSION: 1. Anemia. 2. Gastrointestinal bleeding. 3. End-stage renal disease. 4. Ischemic cardiomyopathy. 5. Hypertensive heart disease. 6. Near syncope due to hypovolemia and severe anemia. 7. Nonsustained atrial and ventricular ectopy. PLAN: 1. Anemia panel. 2. Packed red blood cell transfusion. 3. Hemodialysis with ultrafiltration. 4. Titration of anti-failure regimen and antihypertensives on hold. 5. We will follow. Continue cardiac monitoring at this time. Angel Mahan M.D. DR: EBONY JOB#: [id number] CC:
--- NOTE | 2019-01-10 07:01 | NUR ---
HAND-OFF: Report given to KITTY Bertrand. Plan of care endorsed.
[2019-01-10 07:18] LABS: ANION GAP 10 mmol/L (5-15); BLOOD UREA NITROGEN 43 mg/dL (7-18); CALCIUM 7.1 MG/DL (8.5-10.1); CARBON DIOXIDE 30 MMOL/L (21-32); CHLORIDE 99 MMOL/L (98-107); CREATININE 4.8 MG/DL (0.55-1.30); SODIUM 138 MMOL/L (136-145)
--- NOTE | 2019-01-10 07:20 | NUR ---
NURSE NOTES: Received report from KITTY Weathers. Pt in bed, asleep, respirations regular and appear unlabored, bed in lowest position, call light within reach, pt information board updated with plan for today, HD scheduled for today.
[2019-01-10 07:23] LABS: EOSINOPHILS % (AUTO) 4.1 % (0.0-3.0); HEMATOCRIT 24.9 % (37.0-47.0); HEMOGLOBIN 8.5 G/DL (12.0-16.0); LYMPHOCYTES % (AUTO) 19.7 % (20.0-45.0); MEAN CORPUSCULAR VOLUME 95 FL (80-99); MONOCYTES % (AUTO) 8.2 % (1.0-10.0); PLATELET COUNT 150 K/UL (150-450); RED BLOOD COUNT 2.63 M/UL (4.20-5.40); WHITE BLOOD COUNT 4.3 K/UL (4.8-10.8)
[2019-01-10 08:00] VITALS: BP 128/55
[2019-01-10] MEDS: Allopurinol 100mg Tab ORAL SCH ×2 (09:00→11:45)
[2019-01-10] MEDS: Aspirin EC 81mg tab ORAL SCH ×2 (09:00→11:44)
[2019-01-10] MEDS: Docusate 100mg cap ORAL SCH (09:00)
[2019-01-10] MEDS: Carvedilol 6.25mg Tab ORAL SCH ×3 (09:00→20:51)
--- NOTE | 2019-01-10 10:45 | Infectious Diseases Prog Note ---
Assessment/Plan Assessment/Plan antibiotics : ceftriaxone A 1. UTI 2. renal failure on dialysis 3. diabetes mellitus 4. hypertension P 1. continue ceftriaxone 2. will follow up cultures Subjective Constitutional: Denies: fever, chills Respiratory: Denies: shortness of breath, dry cough Gastrointestinal/Abdominal: Denies: nausea, vomiting, diarrhea Musculoskeletal: Denies: pain Allergies: Coded Allergies: PENICILLINS (Unverified Allergy, Unknown, 10/29/17) Uncoded Allergies: PENICILLIN (Allergy, Unknown, 10/28/17) Objective Vital Signs Last 24 Hour Vital Signs Date Time Temp Pulse Resp B/P (MAP) Pulse Ox O2 Delivery O2 Flow Rate FiO2 01/10/19 09:00 74 128/55 01/10/19 09:00 74 128/55 01/10/19 08:36 Room Air 01/10/19 08:00 98.2 74 20 128/55 (79) 97 01/10/19 07:43 81 01/10/19 04:00 98.9 70 18 118/41 (66) 95 01/10/19 04:00 76 01/10/19 00:00 78 01/10/19 00:00 98.8 86 18 111/55 (73) 95 01/09/19 22:49 77 127/62 01/09/19 21:00 Room Air 01/09/19 20:00 99.1 77 18 127/62 (83) 95 01/09/19 20:00 80 01/09/19 16:00 98.7 78 18 122/63 (82) 98 01/09/19 15:35 79 01/09/19 11:41 96.7 78 20 105/61 (76) 99 01/09/19 11:39 Room Air 01/09/19 11:30 85 Height (Feet): 5 Height (Inches): 5.00 Weight (Pounds): 144 Respiratory/Chest: lungs clear Cardiovascular: normal rate, regular rhythm, no gallop/murmur Abdomen: soft, non tender Extremities: no edema, other - right subclavian catheter Microbiology Date/Time Source Procedure Growth Status 01/08/19 19:15 Blood Blood Culture - Preliminary NO GROWTH AFTER 24 HOURS Resulted 01/08/19 19:00 Blood Blood Culture - Preliminary NO GROWTH AFTER 24 HOURS Resulted 01/08/19 19:18 Urine,Clean Catch Urine Culture - Preliminary NO GROWTH AFTER 24 HOURS Resulted Laboratory Tests Test 01/09/19 11:30 01/09/19 15:00 01/10/19 05:21 Stool Occult Blood Negative (NEGATIVE) White Blood Count 4.4 K/UL (4.8-10.8) L 4.3 K/UL (4.8-10.8) L Red Blood Count 2.67 M/UL (4.20-5.40) L 2.63 M/UL (4.20-5.40) L Hemoglobin 8.8 G/DL (12.0-16.0) #L 8.5 G/DL (12.0-16.0) L Hematocrit 24.1 % (37.0-47.0) #L 24.9 % (37.0-47.0) L Mean Corpuscular Volume 90 FL (80-99) # 95 FL (80-99) Mean Corpuscular Hemoglobin 32.8 PG (27.0-31.0) H 32.4 PG (27.0-31.0) H Mean Corpuscular Hemoglobin Concent 36.3 G/DL (32.0-36.0) H 34.2 G/DL (32.0-36.0) Red Cell Distribution Width 17.9 % (11.6-14.8) H 20.0 % (11.6-14.8) H Platelet Count 143 K/UL (150-450) L 150 K/UL (150-450) Mean Platelet Volume 6.8 FL (6.5-10.1) 6.3 FL (6.5-10.1) L Neutrophils (%) (Auto) 63.5 % (45.0-75.0) 66.0 % (45.0-75.0) Lymphocytes (%) (Auto) 21.6 % (20.0-45.0) 19.7 % (20.0-45.0) L Monocytes (%) (Auto) 11.0 % (1.0-10.0) H 8.2 % (1.0-10.0) Eosinophils (%) (Auto) 2.1 % (0.0-3.0) 4.1 % (0.0-3.0) H Basophils (%) (Auto) 1.7 % (0.0-2.0) 2.0 % (0.0-2.0) Sodium Level 138 MMOL/L (136-145) Potassium Level 5.0 MMOL/L (3.5-5.1) Chloride Level 99 MMOL/L (98-107) Carbon Dioxide Level 30 MMOL/L (21-32) Anion Gap 10 mmol/L (5-15) Blood Urea Nitrogen 43 mg/dL (7-18) H Creatinine 4.8 MG/DL (0.55-1.30) H Estimat Glomerular Filtration Rate mL/min (>60) Glucose Level 94 MG/DL (74-106) Calcium Level 7.1 MG/DL (8.5-10.1) L Current Medications Medications (Trade) Dose Ordered Sig/Eduard Route PRN Reason Start Time Stop Time Status Last Admin Dose Admin Acetaminophen/ Codeine Phosphate (Tylenol #3) 1 tab Q6H PRN ORAL For Pain 01/08/19 21:30 01/15/19 21:29 Allopurinol (Zyloprim) 100 mg DAILY ORAL 01/09/19 09:00 02/08/19 08:59 01/09/19 09:12 Amlodipine Besylate (Norvasc) 5 mg DAILY ORAL 01/09/19 09:00 02/08/19 08:59 Aspirin (Ecotrin) 81 mg DAILY ORAL 01/09/19 09:00 02/08/19 08:59 01/09/19 09:12 Carvedilol (Coreg) 6.25 mg EVERY 12 HOURS ORAL 01/09/19 01:15 02/08/19 01:14 01/09/19 22:49 Ceftriaxone Sodium 1 gm/ Dextrose 55 ml @ 110 mls/hr Q24H IVPB 01/09/19 20:00 01/16/19 19:59 01/09/19 20:15 Dextrose (Dextrose 50%) 25 ml Q30M PRN IV Hypoglycemia 01/08/19 21:30 02/07/19 21:29 Dextrose (Dextrose 50%) 50 ml Q30M PRN IV Hypoglycemia 01/08/19 21:30 02/07/19 21:29 Docusate Sodium (Colace) 100 mg DAILY ORAL 01/09/19 09:00 02/08/19 08:59 01/09/19 09:12 Epoetin Masood (Procrit (for ESRD on dialysis)) 5,000 units TUE-TUE-TUE SUBQ 01/10/19 21:00 02/09/19 20:59 Gabapentin (Neurontin) 100 mg BID ORAL 01/09/19 01:15 02/08/19 01:14 01/09/19 16:56 Heparin Sodium (Porcine) (Heparin Sod 1000 units/ml 10ml) 2,000 unit ONCE PRN IV FOR HD USE 01/10/19 06:00 01/10/19 23:59 Insulin Aspart (NovoLOG) BEFORE MEALS AND HS SUBQ 01/09/19 06:30 02/08/19 06:29 01/09/19 06:31 Levothyroxine Sodium (Synthroid) 25 mcg DAILY@0630 ORAL 01/09/19 06:30 02/08/19 06:29 01/10/19 05:29 Ondansetron HCl (Zofran) 4 mg Q6H PRN IVP Nausea & Vomiting 01/09/19 00:45 02/08/19 00:44 01/09/19 01:07 Pravastatin Sodium (Pravachol) 40 mg BEDTIME ORAL 01/09/19 21:00 02/08/19 20:59 01/09/19 22:48 Sodium Chloride 1,000 ml @ 500 mls/hr Q2H PRN IVLG sbp<90 during hd 01/10/19 06:00 01/10/19 23:59 Johan Rudolph MD Jan 10, 2019 10:45
--- NOTE | 2019-01-10 11:34 | NUR ---
NURSE NOTES: Pt states she has controlled her Blood Sugar with diet and has not been on insulin or DM meds for the last two years. Last 4 BS checks has been WNL. RN notified Dr. Wiley and asked if he would like to continue checking.
[2019-01-10 11:36] VITALS: BP 156/4
--- NOTE | 2019-01-10 13:10 | NUR ---
CASE MANAGEMENT:REVIEW 83 YR OLD FEMALE BIBA FROM HOME CC; GENERALIZED WEAKNESS AFTER DIALYSIS SI: SYMPTOMATIC ANEMIA. UTI 98.2 83 18 138/53 96% ON RA H/H-7.2/20.3 IS: 250CC NS BOLUS IV ROCEPHIN BLOOD CX CHEST XRAY : TO TELEMETRY IS: TRANSFUSE 2 UNIT PRBC'S INTERQUAL CRITERIA MET
--- NOTE | 2019-01-10 13:50 | NUR ---
PT EVALUATION NOTE Patient seen for initial evaluation, see complete evaluation for details. Patient presents with generalized weakness which affects patient's balance and ability to perform mobility tasks safely. Patient requires min assist for bed mobility and CGA for transfers with FWW. Patient able to ambulate 50 ft with SBA/CGA and a FWW. Patient slightly unsteady during ambulation and is at risk for falls. Patient will benefit from skilled inpatient PT intervention to address strength, balance and safety to improve level of functional mobility. Anticipate discharge home with family and caregiver assistance. Patient appears to have necessary DME at home. Addendum: 01/10/19 at 1430 by CAMRYN CUELLAR PT Amended: Links added.
--- NOTE | 2019-01-10 13:52 | NUR ---
NURSE NOTES: Spoke with Dr. Mahan about resuming Plavix as pt is refusing to do Colonoscopy and EGD. Dr. Mahan stated pt can resume Plavix, order entered. Spoke with Dr. Silvestre this am about pt not wanting to do EGD and Colonoscopy as she had them done [address] Silvestre stated he is aware and okay to hold off on new procedure.
--- NOTE | 2019-01-10 14:38 | NUR ---
HAND-OFF: Report given to KITTY Barclay. Pt stable for transfer, plan of care endorsed.
--- NOTE | 2019-01-10 14:45 | NUR ---
NURSE NOTES: Patient received into room 403 bed 2,patient is alert and oriented respirations unlabored,Patient has her personal belongings.Bed alarm is on,call light within reach.
--- NOTE | 2019-01-10 14:46 | NUR ---
NURSE NOTES: Received patient from tele from [facility]. Patient is alert and oriented x4. Not in respiratory/cardiac distress. Breathing is even and unlabored. Patient is s/p hemodialysis today. Right upper chest perma cath intact, dressing is CDI. Re-orientation given about the unit. All belongings were checked by tele and RN. All belongings accounted for. Patient has galeana of $116.00. Patient refused to keep it in [facility] safe. Skin assessment done, skin intact on all pressure points. Bed is in lowest position and locked. Call light and personnel items within reach. Bed alarm is on. Will continue plan of care.
--- NOTE | 2019-01-10 17:56 | NUR ---
NURSE NOTES: DR Brice here to see patient aware that ,patient complain of shortness of breath,02 sats on room air 96%,02 applied.will monitor.
--- NOTE | 2019-01-10 18:06 | Nephrology Progress Note ---
Assessment/Plan Problem List: (1) Breast cancer (2) End-stage renal disease (3) Episode of generalized weakness (4) Symptomatic anemia (5) GIB (gastrointestinal bleeding) Plan HD with UF -2000 weak, evaluation for gi bleed ongoing Subjective Constitutional: Reports: weakness HEENT: Reports: no symptoms Genitourinary: Reports: incontinence Neurologic/Psychiatric: Reports: pre-existing deficit Objective Objective Last 24 Hour Vital Signs Date Time Temp Pulse Resp B/P (MAP) Pulse Ox O2 Delivery O2 Flow Rate FiO2 01/10/19 11:45 81 156/54 01/10/19 11:45 81 156/54 01/10/19 11:43 88 01/10/19 11:36 98.4 81 18 156/4 (54) 98 01/10/19 11:35 81 86 94 01/10/19 08:36 Room Air 01/10/19 08:00 98.2 74 20 128/55 (79) 97 01/10/19 07:43 81 01/10/19 04:00 98.9 70 18 118/41 (66) 95 01/10/19 04:00 76 01/10/19 00:00 78 01/10/19 00:00 98.8 86 18 111/55 (73) 95 01/09/19 22:49 77 127/62 01/09/19 21:00 Room Air 01/09/19 20:00 99.1 77 18 127/62 (83) 95 01/09/19 20:00 80 Intake and Output 01/09/19 01/10/19 19:00 07:00 Intake Total 840 ml 120 ml Balance 840 ml 120 ml Intake Oral 840 ml 120 ml # Bowel Movements 2 1 Laboratory Tests 01/10/19 05:21: White Blood Count 4.3L, Red Blood Count 2.63L, Hemoglobin 8.5L, Hematocrit 24.9L , Mean Corpuscular Volume 95, Mean Corpuscular Hemoglobin 32.4H, Mean Corpuscular Hemoglobin Concent 34.2, Red Cell Distribution Width 20.0H, Platelet Count 150, Mean Platelet Volume 6.3L, Neutrophils (%) (Auto) 66.0, Lymphocytes (%) (Auto) 19.7L, Monocytes (%) (Auto) 8.2, Eosinophils (%) (Auto) 4.1H, Basophils (%) (Auto) 2.0, Sodium Level 138, Potassium Level 5.0, Chloride Level 99, Carbon Dioxide Level 30, Anion Gap 10, Blood Urea Nitrogen 43H, Creatinine 4.8H, Estimat Glomerular Filtration Rate , Glucose Level 94, Calcium Level 7.1L Height (Feet): 5 Height (Inches): 5.00 Weight (Pounds): 143 General Appearance: alert, mild distress EENT: normal ENT inspection Neck: normal alignment, supple Cardiovascular: regular rhythm Respiratory/Chest: lungs clear Abdomen: non tender, soft Extremities: no edema Neurologic: motor weakness Zeus Brice MD Jan 10, 2019 18:05
--- NOTE | 2019-01-10 18:40 | NUR ---
NURSE NOTES: Patient is in bed complaining of chest tightness but not chest pain. V/S stable. HOB elevated. Breathing is even and unlabored. Lung sound is clear. Dr. Wiley was paged.Awaiting for return call. Assigned nurse Mar is aware.
--- NOTE | 2019-01-10 19:14 | NUR ---
NURSE NOTES: RN spoke to Dr. Wiley and relayed patient's condition.Patient is alert and oriented x4. V/S stable,denies chest pain,lung sound is clear. No wheezing or congestion. O2sat is 96% in room air with new order to do EKG stat and transfer patient back to tele. Carried out. 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 RT was called for stat EKG.
--- NOTE | 2019-01-10 19:21 | NUR ---
NURSE NOTES: HAND-OFF: Report given to Brice TANG.
--- NOTE | 2019-01-10 19:30 | NUR ---
NURSE NOTES: Patient awake in bed, on nasal cannula 2LPM. Instructed to use call light for assistance. Bed in lowest, lock engaged and alarm on. Will continue to monitor.
[2019-01-10] MEDS: cefTRIAXone 1 GM in D5W 55 ML IVPB SCH (20:00)
[2019-01-10] MEDS: Epoetin Alfa-EPBX(ESRD on dialysis)3000 units/ml vial SUBQ SCH (20:52)
[2019-01-10] MEDS: Epoetin Alfa-EPBX(ESRD on dialysis)2000 units/ml vial SUBQ SCH (20:52)
[2019-01-10 21:00] VITALS: BP 117/57
[2019-01-10] MEDS ORDERED: Epogen (for ESRD on dialysis) SUBQ SCH ×2 (21:00)
[2019-01-10] MEDS ORDERED: Epoetin Alfa-EPBX(ESRD on dialysis)10,000 unit/ml vial SUBQ SCH (21:00)
--- NOTE | 2019-01-10 22:26 | General Progress Note ---
Assessment/Plan Status: stable Assessment/Plan: Assessment - symptomatic anemia, presumed acute - anemia, likely in part due to CRF - abnormal U/A - ESRD / HD Recommendations - laxative PRN - PPI - check stool OB - neg so fare - transfusion PRN - EGD / colon cancelled per pt refusal - resume plavix Subjective Allergies: Coded Allergies: PENICILLINS (Unverified Allergy, Unknown, 10/29/17) Uncoded Allergies: PENICILLIN (Allergy, Unknown, 10/28/17) Subjective seen this am now refused EGD/Colon scheduled for this week understands and accepts risks of malignancy Objective Last 24 Hour Vital Signs Date Time Temp Pulse Resp B/P (MAP) Pulse Ox O2 Delivery O2 Flow Rate FiO2 01/10/19 20:51 87 153/74 01/10/19 11:45 81 156/54 01/10/19 11:45 81 156/54 01/10/19 11:43 88 01/10/19 11:36 98.4 81 18 156/4 (54) 98 01/10/19 11:35 81 86 94 01/10/19 08:36 Room Air 01/10/19 08:00 98.2 74 20 128/55 (79) 97 01/10/19 07:43 81 01/10/19 04:00 98.9 70 18 118/41 (66) 95 01/10/19 04:00 76 01/10/19 00:00 78 01/10/19 00:00 98.8 86 18 111/55 (73) 95 01/09/19 22:49 77 127/62 Intake and Output 01/09/19 01/10/19 19:00 07:00 Intake Total 840 ml 120 ml Balance 840 ml 120 ml Intake Oral 840 ml 120 ml # Bowel Movements 2 1 Laboratory Tests 01/10/19 05:21: White Blood Count 4.3L, Red Blood Count 2.63L, Hemoglobin 8.5L, Hematocrit 24.9L , Mean Corpuscular Volume 95, Mean Corpuscular Hemoglobin 32.4H, Mean Corpuscular Hemoglobin Concent 34.2, Red Cell Distribution Width 20.0H, Platelet Count 150, Mean Platelet Volume 6.3L, Neutrophils (%) (Auto) 66.0, Lymphocytes (%) (Auto) 19.7L, Monocytes (%) (Auto) 8.2, Eosinophils (%) (Auto) 4.1H, Basophils (%) (Auto) 2.0, Sodium Level 138, Potassium Level 5.0, Chloride Level 99, Carbon Dioxide Level 30, Anion Gap 10, Blood Urea Nitrogen 43H, Creatinine 4.8H, Estimat Glomerular Filtration Rate , Glucose Level 94, Calcium Level 7.1L Height (Feet): 5 Height (Inches): 5.00 Weight (Pounds): 143 Objective WDWN NCAT supple CTA RR abd soft ND NT no edema Chavez Silvestre MD Jan 10, 2019 22:26
--- NOTE | 2019-01-10 23:34 | Progress Note ---
DATE: 01/10/2019 CARDIOLOGY PROGRESS NOTE SUBJECTIVE: The patient notes having had colonoscopy in the last year or two. She is refusing repeat procedure. She is not complaining of any nausea, vomiting, or shortness of breath. OBJECTIVE: VITAL SIGNS: Blood pressure 128/55, pulse 74, respiratory rate 20. LUNGS: Clear. CARDIAC: Regular. Normal S1, S2 with a fourth heart sound. ABDOMEN: Soft. EXTREMITIES: No edema. LABORATORY AND DIAGNOSTIC DATA: Monitor remains with sinus rhythm, rare atrial and ventricular ectopics that are nonsustained. White count 4.3, hemoglobin 8.5, BUN 43, creatinine 4.8. Potassium 5. IMPRESSION: 1. Near syncope likely due to hypovolemia and severe anemia. 2. Anemia due to chronic kidney disease with no signs of GI bleeding. Stool occult blood was negative. 3. End-stage renal disease on hemodialysis. 4. Hypertensive heart disease with controlled blood pressure. 5. Type 2 diabetes mellitus with complications and adequate glucose control. 6. Urinary tract infection on antimicrobials. PLAN: Conservative medical management. Avoid tight blood pressure control. Avoid excessive ultrafiltration and orthostatic potential. Monitor blood counts. Continue Epogen and vitamin supplementation as indicated. Discontinue cardiac monitoring. We will follow up on orthostatic blood pressure results as mobilization is initiated. Angel Mahan M.D. DR: Audelia JOB#: [id number] CC: ISABELL
[2019-01-11] VITALS: BP 114/53
[2019-01-11] MEDS: Tylenol #3 tab (300mg/30mg) ORAL PRN (01:43)
[2019-01-11 04:00] VITALS: BP 116/66
[2019-01-11] MEDS: Levothyroxine 25mcg tab ORAL SCH (05:56)
--- NOTE | 2019-01-11 07:23 | NUR ---
HAND-OFF: Report given to KITTY Garcia.
[2019-01-11 08:00] VITALS: BP 103/52
--- NOTE | 2019-01-11 08:12 | NUR ---
NURSE NOTES: received report from KITTY Rivera. patient in bed. alert. oriented. verbally responsive. no respiratory distress noted. o2l via NC. no c/o pain . no CP at this time. IV on LFA 24g. saline lock intact. the bed in the lowest position . call light within reach. will continue to provide plan of care.
--- NOTE | 2019-01-11 08:51 | General Progress Note ---
Assessment/Plan Problem List: (1) GIB (gastrointestinal bleeding) ICD Codes: K92.2 - Gastrointestinal hemorrhage, unspecified SNOMED: 30543873 (2) CAD (coronary artery disease) ICD Codes: I25.10 - Atherosclerotic heart disease of [place] coronary artery without angina pectoris SNOMED: 84569878 (3) HTN (hypertension) ICD Codes: I10 - Essential (primary) hypertension SNOMED: 88828931 (4) DM2 (diabetes mellitus, type 2) ICD Codes: E11.9 - Type 2 diabetes mellitus without complications SNOMED: 71265993 (5) UTI (urinary tract infection) ICD Codes: N39.0 - Urinary tract infection, site not specified SNOMED: 60110797 Qualifiers: Qualified Codes: N30.00 - Acute cystitis without hematuria (6) Symptomatic anemia ICD Codes: D64.9 - Anemia, unspecified SNOMED: 885737362 (7) Episode of generalized weakness ICD Codes: R53.1 - Weakness SNOMED: 01480172 Status: stable Assessment/Plan: follow up cbc transfuse as needed stool ob- neg iv abx HD per renal check trop and cxr Subjective ROS Limited/Unobtainable: No Constitutional: Reports: weakness HEENT: Reports: no symptoms Cardiovascular: Reports: no symptoms Respiratory: Reports: no symptoms Gastrointestinal/Abdominal: Reports: no symptoms Genitourinary: Reports: no symptoms Neurologic/Psychiatric: Reports: no symptoms Endocrine: Reports: no symptoms Hematologic/Lymphatic: Reports: anemia Allergies: Coded Allergies: PENICILLINS (Unverified Allergy, Unknown, 10/29/17) Uncoded Allergies: PENICILLIN (Allergy, Unknown, 10/28/17) All Systems: reviewed and negative except above Subjective feels better. wants to go home. no fevers. Ucx neg. stool ob negative. off antiplt rx. had chest pressure last night that resolved spontaneously Objective Last 24 Hour Vital Signs Date Time Temp Pulse Resp B/P (MAP) Pulse Ox O2 Delivery O2 Flow Rate FiO2 01/11/19 04:00 99.1 74 18 116/66 (83) 100 01/11/19 00:00 97.7 88 18 114/53 (73) 100 01/10/19 21:00 98.6 85 18 117/57 (77) 100 01/10/19 21:00 Room Air 11/13/19 20:51 87 153/74 01/10/19 11:45 81 156/54 01/10/19 11:45 81 156/54 01/10/19 11:43 88 01/10/19 11:36 98.4 81 18 156/4 (54) 98 01/10/19 11:35 81 86 94 Intake and Output 01/10/19 01/11/19 19:00 07:00 Intake Total 800 ml 305 ml Output Total 2000 ml Balance -1200 ml 305 ml Intake Oral 800 ml 250 ml IV Total 55 ml Output Hemodialysis UF 2000 ml # Bowel Movements 3 1 Height (Feet): 5 Height (Inches): 5.00 Weight (Pounds): 152 Objective General Appearance: WD/WN, alert Neck: supple Cardiovascular: regular rhythm Respiratory/Chest: lungs clear Abdomen: normal bowel sounds, non tender, soft, no organomegaly Edema: no edema noted Arm (L), no edema noted Arm (R), no edema noted Leg (L), no edema noted Leg (R), no edema noted Pedal (L), no edema noted Pedal (R), no edema noted Generalized William Wiley MD Jan 11, 2019 08:51
--- NOTE | 2019-01-11 08:54 | General Progress Note ---
Assessment/Plan Problem List: (1) GIB (gastrointestinal bleeding) ICD Codes: K92.2 - Gastrointestinal hemorrhage, unspecified SNOMED: 60179725 (2) CAD (coronary artery disease) ICD Codes: I25.10 - Atherosclerotic heart disease of [place] coronary artery without angina pectoris SNOMED: 32207180 (3) HTN (hypertension) ICD Codes: I10 - Essential (primary) hypertension SNOMED: 87907143 (4) DM2 (diabetes mellitus, type 2) ICD Codes: E11.9 - Type 2 diabetes mellitus without complications SNOMED: 22102053 (5) UTI (urinary tract infection) ICD Codes: N39.0 - Urinary tract infection, site not specified SNOMED: 30278308 Qualifiers: Qualified Codes: N30.00 - Acute cystitis without hematuria (6) Symptomatic anemia ICD Codes: D64.9 - Anemia, unspecified SNOMED: 121271604 (7) Episode of generalized weakness ICD Codes: R53.1 - Weakness SNOMED: 74448600 Status: stable Assessment/Plan: follow up cbc transfuse as needed check stool ob iv abx HD per renal antiplt rx on hold Subjective Date patient seen: Jan 10, 2019 Constitutional: Reports: weakness HEENT: Reports: no symptoms Cardiovascular: Reports: no symptoms Respiratory: Reports: no symptoms Gastrointestinal/Abdominal: Reports: no symptoms Genitourinary: Reports: no symptoms Neurologic/Psychiatric: Reports: no symptoms Endocrine: Reports: no symptoms Hematologic/Lymphatic: Reports: no symptoms Allergies: Coded Allergies: PENICILLINS (Unverified Allergy, Unknown, 10/29/17) Uncoded Allergies: PENICILLIN (Allergy, Unknown, 10/28/17) All Systems: reviewed and negative except above Subjective no new complaints. no cps/ob. on iv abx. s/p transfusion. no bleeding noted Objective Last 24 Hour Vital Signs Date Time Temp Pulse Resp B/P (MAP) Pulse Ox O2 Delivery O2 Flow Rate FiO2 01/11/19 04:00 99.1 74 18 116/66 (83) 100 01/11/19 00:00 97.7 88 18 114/53 (73) 100 01/10/19 21:00 98.6 85 18 117/57 (77) 100 01/10/19 21:00 Room Air 01/10/19 20:51 87 153/74 01/10/19 11:45 81 156/54 01/10/19 11:45 81 156/54 01/10/19 11:43 88 01/10/19 11:36 98.4 81 18 156/4 (54) 98 01/10/19 11:35 81 86 94 Intake and Output 01/10/19 01/11/19 19:00 07:00 Intake Total 800 ml 305 ml Output Total 2000 ml Balance -1200 ml 305 ml Intake Oral 800 ml 250 ml IV Total 55 ml Output Hemodialysis UF 2000 ml # Bowel Movements 3 1 Height (Feet): 5 Height (Inches): 5.00 Weight (Pounds): 152 Objective General Appearance: WD/WN, alert Neck: supple Cardiovascular: regular rhythm Respiratory/Chest: lungs clear Abdomen: normal bowel sounds, non tender, soft, no organomegaly Edema: no edema noted Arm (L), no edema noted Arm (R), no edema noted Leg (L), no edema noted Leg (R), no edema noted Pedal (L), no edema noted Pedal (R), no edema noted Generalized William Wiley MD Jan 11, 2019 08:54
[2019-01-11] MEDS: Carvedilol 6.25mg Tab ORAL SCH ×3 (09:00→20:46)
[2019-01-11] MEDS: Docusate 100mg cap ORAL SCH (09:33)
[2019-01-11] MEDS: Aspirin EC 81mg tab ORAL SCH (09:33)
[2019-01-11] MEDS: Allopurinol 100mg Tab ORAL SCH (09:35)
[2019-01-11 09:39] LABS: HEMATOCRIT 21.3 % (37.0-47.0); HEMOGLOBIN 7.2 G/DL (12.0-16.0); MEAN CORPUSCULAR VOLUME 96 FL (80-99); PLATELET COUNT 178 K/UL (150-450); RED BLOOD COUNT 2.22 M/UL (4.20-5.40); RED CELL DISTRIBUTION WIDTH 19.2 % (11.6-14.8); WHITE BLOOD COUNT 4.2 K/UL (4.8-10.8)
--- NOTE | 2019-01-11 09:41 | NUR ---
NURSE NOTES: RN held coreg and norvsc for HTN. patient orthostatic hypotension. lying 123/52/85, sitting 107/52/89, standing 116/63/89. no c/o dizziness.
--- NOTE | 2019-01-11 10:16 | NUR ---
RADIOLOGY DEPT., CHEST X-RAY DONE.-P.DYE
[2019-01-11 12:00] VITALS: BP 128/58
--- NOTE | 2019-01-11 12:42 | Diagnostic Imaging Report ---
Indication: Dyspnea Comparison: 01/08/2019 A single view chest radiograph was obtained. Findings: Pulmonary vascularity is mildly prominent currently. Heart is mildly enlarged. There is a right jugular permacath in good position. IMPRESSION: Mild pulmonary vascular congestion is considered.
--- NOTE | 2019-01-11 13:56 | NUR ---
RD ASSESSMENT & RECOMMENDATIONS SEE CARE ACTIVITY FOR COMPLETE ASSESSMENT DAILY ESTIMATED NEEDS: Needs based on ESRD on HD 64.5kg 25-35 kcals/kg 1498-9360 total kcals 1.2-1.8 g protein/kg 77-116 g total protein Fluid per MD, on HD NUTRITION DIAGNOSIS: Increased kcal and pro needs r/t ESRD as evidenced by pt on dialysis. PO DIET RECOMMENDATIONS: RENAL DIET ADDITIONAL RECOMMENDATIONS: 1) Add Nepro qdaily 2) Add snacks in b/w meals 3) Obtain a standing weight as able post HD 4) Monitor BG, need for hypoglycemics
--- NOTE | 2019-01-11 14:00 | NUR ---
CASE MANAGEMENT:REVIEW 01/11/19 SI: GIB. SYMPTOMATIC ANEMIA. UTI 97.2 73 18 128/58 96% ON RA H/H-7.2/21.3 IS: IV ROCEPHIN Q24 NORVASC PO QD ASA PO QD PLAVIX PO QD COREG PO Q12 : MED/SURG 4 EAST DCP: FROM HOME....OUTPATIENT DIALYSIS
--- NOTE | 2019-01-11 14:22 | Infectious Diseases Prog Note ---
Assessment/Plan Assessment/Plan A 1. Pyuria/ UTI 2. renal failure on dialysis 3. diabetes mellitus 4. hypertension 5. Anemia P 1. continue ceftriaxone until tomorrow 2. will follow up cultures Subjective ROS Limited/Unobtainable: No Constitutional: Reports: no symptoms Respiratory: Reports: no symptoms Cardiovascular: Reports: no symptoms Gastrointestinal/Abdominal: Reports: no symptoms Genitourinary: Reports: no symptoms Allergies: Coded Allergies: PENICILLINS (Unverified Allergy, Unknown, 10/29/17) Uncoded Allergies: PENICILLIN (Allergy, Unknown, 10/28/17) Objective Vital Signs Last 24 Hour Vital Signs Date Time Temp Pulse Resp B/P (MAP) Pulse Ox O2 Delivery O2 Flow Rate FiO2 01/11/19 12:00 97.2 73 18 128/58 (81) 96 01/11/19 09:00 85 89 89 01/11/19 09:00 Room Air 01/11/19 08:00 97.9 85 20 103/52 (69) 100 01/11/19 04:00 99.1 74 18 116/66 (83) 100 01/11/19 00:00 97.7 88 18 114/53 (73) 100 01/10/19 21:00 98.6 85 18 117/57 (77) 100 01/10/19 21:00 Room Air 01/10/19 20:51 87 153/74 Height (Feet): 5 Height (Inches): 5.00 Weight (Pounds): 149 General Appearance: no acute distress HEENT: mucous membranes moist Respiratory/Chest: lungs clear Cardiovascular: normal rate, other - R Permacath Abdomen: soft, non tender Extremities: no edema, other - 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 Neurologic/Psychiatric: alert, oriented x 3, responsive Microbiology Date/Time Source Procedure Growth Status 01/08/19 19:15 Blood Blood Culture - Preliminary NO GROWTH AFTER 48 HOURS Resulted 01/08/19 19:00 Blood Blood Culture - Preliminary NO GROWTH AFTER 48 HOURS Resulted 01/08/19 19:18 Urine,Clean Catch Urine Culture - Final NO GROWTH AFTER 48 HOURS Complete Laboratory Tests Test 01/11/19 09:25 White Blood Count 4.2 K/UL (4.8-10.8) L Red Blood Count 2.22 M/UL (4.20-5.40) L Hemoglobin 7.2 G/DL (12.0-16.0) L Hematocrit 21.3 % (37.0-47.0) L Mean Corpuscular Volume 96 FL (80-99) Mean Corpuscular Hemoglobin 32.4 PG (27.0-31.0) H Mean Corpuscular Hemoglobin Concent 33.7 G/DL (32.0-36.0) Red Cell Distribution Width 19.2 % (11.6-14.8) H Platelet Count 178 K/UL (150-450) Mean Platelet Volume 6.4 FL (6.5-10.1) L Neutrophils (%) (Auto) % (45.0-75.0) Lymphocytes (%) (Auto) % (20.0-45.0) Monocytes (%) (Auto) % (1.0-10.0) Eosinophils (%) (Auto) % (0.0-3.0) Basophils (%) (Auto) % (0.0-2.0) Differential Total Cells Counted 100 Neutrophils % (Manual) 67 % (45-75) Lymphocytes % (Manual) 19 % (20-45) L Monocytes % (Manual) 11 % (1-10) H Eosinophils % (Manual) 3 % (0-3) Basophils % (Manual) 0 % (0-2) Band Neutrophils 0 % (0-8) Platelet Estimate Adequate Platelet Morphology Normal Troponin I 0.015 ng/mL (0.000-0.056) Current Medications Medications (Trade) Dose Ordered Sig/Eduard Route PRN Reason Start Time Stop Time Status Last Admin Dose Admin Acetaminophen/ Codeine Phosphate (Tylenol #3) 1 tab Q6H PRN ORAL For Pain 01/10/19 14:42 01/17/19 14:41 01/11/19 01:43 Allopurinol (Zyloprim) 100 mg DAILY ORAL 01/11/19 09:00 02/08/19 08:59 01/11/19 09:35 Amlodipine Besylate (Norvasc) 5 mg DAILY ORAL 01/11/19 09:00 02/08/19 08:59 Aspirin (Ecotrin) 81 mg DAILY ORAL 01/11/19 09:00 02/08/19 08:59 01/11/19 09:33 Carvedilol (Coreg) 6.25 mg EVERY 12 HOURS ORAL 01/10/19 21:00 02/08/19 01:14 01/10/19 20:51 Ceftriaxone Sodium 1 gm/ Dextrose 55 ml @ 110 mls/hr Q24H IVPB 01/10/19 20:00 01/16/19 19:59 01/10/19 20:00 Clopidogrel Bisulfate (Plavix) 75 mg DAILY ORAL 01/11/19 09:00 02/10/19 08:59 01/11/19 09:34 Docusate Sodium (Colace) 100 mg DAILY ORAL 01/11/19 09:00 02/08/19 08:59 01/11/19 09:33 Epoetin Masood (Epoetin Masood(ESRD on dialysis)) 2,000 unit TUE-TUE-TUE SUBQ 01/10/19 21:00 02/09/19 20:59 01/10/19 20:52 Epoetin Masood (Epoetin Masood(ESRD on dialysis)) 3,000 unit SUBQ 01/10/19 21:00 02/09/19 20:59 01/10/19 20:52 Gabapentin (Neurontin) 100 mg BID ORAL 01/10/19 18:00 02/08/19 01:14 01/11/19 09:35 Levothyroxine Sodium (Synthroid) 25 mcg DAILY@0630 ORAL 01/11/19 06:30 02/08/19 06:29 01/11/19 05:56 Ondansetron HCl (Zofran) 4 mg Q6H PRN IVP Nausea & Vomiting 01/10/19 18:45 02/08/19 00:44 Pravastatin Sodium (Pravachol) 40 mg BEDTIME ORAL 01/10/19 21:00 02/08/19 20:59 01/10/19 20:46 Rip Sanchez MD Jan 11, 2019 14:22
[2019-01-11 16:00] VITALS: BP 111/55
--- NOTE | 2019-01-11 16:44 | Nephrology Progress Note ---
Assessment/Plan Problem List: (1) Breast cancer (2) End-stage renal disease (3) Episode of generalized weakness (4) Symptomatic anemia (5) GIB (gastrointestinal bleeding) (6) CHF (congestive heart failure) Plan HD with UF -2000 weak, evaluation for gi bleed ongoing, epogen, mild chf on cxr but no sob, hd 01/12 Subjective Constitutional: Reports: weakness HEENT: Reports: no symptoms Genitourinary: Reports: no symptoms Neurologic/Psychiatric: Reports: pre-existing deficit Objective Objective Last 24 Hour Vital Signs Date Time Temp Pulse Resp B/P (MAP) Pulse Ox O2 Delivery O2 Flow Rate FiO2 01/11/19 12:00 97.2 73 18 128/58 (81) 96 01/11/19 09:00 85 89 89 01/11/19 09:00 Room Air 01/11/19 08:00 97.9 85 20 103/52 (69) 100 01/11/19 04:00 99.1 74 18 116/66 (83) 100 01/11/19 00:00 97.7 88 18 114/53 (73) 100 01/10/19 21:00 98.6 85 18 117/57 (77) 100 01/10/19 21:00 Room Air 01/10/19 20:51 87 153/74 Intake and Output 01/10/19 01/11/19 18:59 06:59 Intake Total 800 ml 305 ml Output Total 2000 ml Balance -1200 ml 305 ml Intake Oral 800 ml 250 ml IV Total 55 ml Output Hemodialysis UF 2000 ml # Bowel Movements 3 1 Laboratory Tests 01/11/19 09:25: White Blood Count 4.2L, Red Blood Count 2.22L, Hemoglobin 7.2L, Hematocrit 21.3L , Mean Corpuscular Volume 96, Mean Corpuscular Hemoglobin 32.4H, Mean Corpuscular Hemoglobin Concent 33.7, Red Cell Distribution Width 19.2H, Platelet Count 178, Mean Platelet Volume 6.4L, Neutrophils (%) (Auto) , Lymphocytes (%) (Auto) , Monocytes (%) (Auto) , Eosinophils (%) (Auto) , Basophils (%) (Auto) , Differential Total Cells Counted 100, Neutrophils % ( Manual) 67, Lymphocytes % (Manual) 19L, Monocytes % (Manual) 11H, Eosinophils % (Manual) 3, Basophils % (Manual) 0, Band Neutrophils 0, Platelet Estimate Adequate, Platelet Morphology Normal, Troponin I 0.015 Height (Feet): 5 Height (Inches): 5.00 Weight (Pounds): 149 General Appearance: no apparent distress, alert EENT: normal ENT inspection Neck: normal alignment Cardiovascular: normal rate, regular rhythm, systolic murmur Respiratory/Chest: lungs clear, normal breath sounds Abdomen: non tender, soft Extremities: no edema Neurologic: motor weakness Zeus Brice MD Jan 11, 2019 16:44
--- NOTE | 2019-01-11 17:05 | NUR ---
NURSE NOTES: RN scheduled HD with [facility] on 01/12/19 as MD ordered. spoke to Amelia for appointment.
--- NOTE | 2019-01-11 19:20 | NUR ---
NURSE NOTES: Pt received in bed alert awake able to make needs known, call light within reach, will monitor blood pressure, no c/o pain or signs of distress at the moment, will continue to monitor.
--- NOTE | 2019-01-11 19:31 | NUR ---
HAND-OFF: Report given to KITTY Martinez.
[2019-01-11 20:00] VITALS: BP 131/56
--- NOTE | 2019-01-11 20:15 | Progress Note ---
DATE: 01/11/2019 CARDIOLOGY PROGRESS NOTE SUBJECTIVE: The patient is status post transfusion. No signs of bleeding noted. She has no chest pain or shortness of breath. She continues on hemodialysis with ultrafiltration based on clinical parameters. Stool occult blood test was negative. OBJECTIVE: VITAL SIGNS: Blood pressure 128/58, pulse 73, respirations 18, afebrile. Oxygen saturation 96% on room air. LUNGS: Clear. CARDIAC: Regular, normal S1, S2 with a fourth heart sound. ABDOMEN: Soft. EXTREMITIES: No edema. LABORATORY DATA: White count 4.2, hemoglobin 7.2. Potassium . Chest x-ray today reveals mild pulmonary venous congestion. IMPRESSION: 1. Anemia of chronic kidney disease. 2. End-stage renal disease. 3. Urinary tract infection. 4. Acute on chronic diastolic congestive heart failure. 5. Hypertensive heart disease. 6. Type 2 diabetes mellitus. PLAN: 1. Antimicrobials. 2. Epogen. 3. Consider additional packed red blood cell transfusion with next dialysis. 4. Ultrafiltration for volume management. 5. We will follow with you during this hospital course. Angel Mahan M.D. DR: JANINA JOB#: [id number] CC:
--- NOTE | 2019-01-11 20:30 | NUR ---
NURSE NOTES: Orthostatic vitals: Lying down 131/56 86hr, Sitting 131/59 84hr, Standing 134/61 95hr
[2019-01-11] MEDS: cefTRIAXone 1 GM in D5W 55 ML IVPB SCH (20:59)
--- NOTE | 2019-01-11 23:25 | General Progress Note ---
Assessment/Plan Status: stable Assessment/Plan: Assessment - symptomatic anemia, presumed acute - anemia, likely in part due to CRF - abnormal U/A - ESRD / HD Recommendations - laxative PRN - PPI - check stool OB - neg so fare - transfusion PRN - EGD / colon cancelled per pt refusal Subjective Allergies: Coded Allergies: PENICILLINS (Unverified Allergy, Unknown, 10/29/17) Uncoded Allergies: PENICILLIN (Allergy, Unknown, 10/28/17) Subjective seen this am still refusing EGD/Colon understands and accepts risks of malignancy Objective Last 24 Hour Vital Signs Date Time Temp Pulse Resp B/P (MAP) Pulse Ox O2 Delivery O2 Flow Rate FiO2 01/11/19 21:00 Room Air 01/11/19 20:46 86 131/56 01/11/19 20:00 99.1 86 16 131/56 (81) 99 01/11/19 16:00 98.1 78 20 111/55 (73) 97 01/11/19 12:00 97.2 73 18 128/58 (81) 96 01/11/19 09:00 85 89 89 01/11/19 09:00 Room Air 01/11/19 08:00 97.9 85 20 103/52 (69) 100 01/11/19 04:00 99.1 74 18 116/66 (83) 100 01/11/19 00:00 97.7 88 18 114/53 (73) 100 Intake and Output 01/10/19 01/11/19 19:00 07:00 Intake Total 800 ml 305 ml Output Total 2000 ml Balance -1200 ml 305 ml Intake Oral 800 ml 250 ml IV Total 55 ml Output Hemodialysis UF 2000 ml # Bowel Movements 3 1 Laboratory Tests 01/11/19 09:25: White Blood Count 4.2L, Red Blood Count 2.22L, Hemoglobin 7.2L, Hematocrit 21.3L , Mean Corpuscular Volume 96, Mean Corpuscular Hemoglobin 32.4H, Mean Corpuscular Hemoglobin Concent 33.7, Red Cell Distribution Width 19.2H, Platelet Count 178, Mean Platelet Volume 6.4L, Neutrophils (%) (Auto) , Lymphocytes (%) (Auto) , Monocytes (%) (Auto) , Eosinophils (%) (Auto) , Basophils (%) (Auto) , Differential Total Cells Counted 100, Neutrophils % ( Manual) 67, Lymphocytes % (Manual) 19L, Monocytes % (Manual) 11H, Eosinophils % (Manual) 3, Basophils % (Manual) 0, Band Neutrophils 0, Platelet Estimate Adequate, Platelet Morphology Normal, Troponin I 0.015 Height (Feet): 5 Height (Inches): 5.00 Weight (Pounds): 154 Objective WDWN NCAT supple CTA RR abd soft ND NT no edema Chavez Silvestre MD Jan 11, 2019 23:25
[2019-01-12] VITALS: BP 107/46
[2019-01-12] MEDS: Tylenol #3 tab (300mg/30mg) ORAL PRN ×2 (02:34→23:38)
[2019-01-12 04:00] VITALS: BP 129/58
[2019-01-12] MEDS ORDERED: Heparin Sod 1000 units/ml 10ml IV PRN (06:00)
[2019-01-12] MEDS: Levothyroxine 25mcg tab ORAL SCH (06:02)
[2019-01-12 06:55] LABS: HEMOGLOBIN 7.8 G/DL (12.0-16.0); MEAN CORPUSCULAR VOLUME 98 FL (80-99); PLATELET COUNT 194 K/UL (150-450); RED BLOOD COUNT 2.35 M/UL (4.20-5.40); RED CELL DISTRIBUTION WIDTH 19.3 % (11.6-14.8); WHITE BLOOD COUNT 4.1 K/UL (4.8-10.8)
[2019-01-12 07:06] LABS: ANION GAP 10 mmol/L (5-15); BLOOD UREA NITROGEN 48 mg/dL (7-18); CALCIUM 7.3 MG/DL (8.5-10.1); CARBON DIOXIDE 28 MMOL/L (21-32); CHLORIDE 98 MMOL/L (98-107); CREATININE 5.7 MG/DL (0.55-1.30); POTASSIUM 5.4 MMOL/L (3.5-5.1); SODIUM 136 MMOL/L (136-145)
--- NOTE | 2019-01-12 07:08 | NUR ---
HAND-OFF: Report given to KITTY Lanier. Endorsed pt dialysis today and Previous nurse spoke with Caitlin from [facility].
--- NOTE | 2019-01-12 07:50 | Nephrology Progress Note ---
Assessment/Plan Problem List: (1) Breast cancer (2) End-stage renal disease (3) Episode of generalized weakness (4) Symptomatic anemia (5) GIB (gastrointestinal bleeding) (6) CHF (congestive heart failure) Plan weak, evaluation for gi bleed ongoing, epogen, mild chf on cxr but no sob, hd Subjective Constitutional: Reports: weakness HEENT: Reports: no symptoms Genitourinary: Reports: no symptoms Neurologic/Psychiatric: Reports: pre-existing deficit Objective Objective Last 24 Hour Vital Signs Date Time Temp Pulse Resp B/P (MAP) Pulse Ox O2 Delivery O2 Flow Rate FiO2 01/12/19 04:00 98.9 71 16 129/58 (81) 98 01/12/19 00:00 99.0 81 16 107/46 (66) 100 01/11/19 21:00 Room Air 01/11/19 20:46 86 131/56 01/11/19 20:00 99.1 86 16 131/56 (81) 99 01/11/19 16:00 98.1 78 20 111/55 (73) 97 01/11/19 12:00 97.2 73 18 128/58 (81) 96 01/11/19 09:00 85 89 89 01/11/19 09:00 Room Air 01/11/19 08:00 97.9 85 20 103/52 (69) 100 Intake and Output 01/11/19 01/12/19 18:59 06:59 Intake Total 480 ml 110 ml Balance 480 ml 110 ml Intake Oral 480 ml IV Total 110 ml # Voids 1 1 # Bowel Movements 1 Laboratory Tests 01/11/19 09:25: White Blood Count 4.2L, Red Blood Count 2.22L, Hemoglobin 7.2L, Hematocrit 21.3L , Mean Corpuscular Volume 96, Mean Corpuscular Hemoglobin 32.4H, Mean Corpuscular Hemoglobin Concent 33.7, Red Cell Distribution Width 19.2H, Platelet Count 178, Mean Platelet Volume 6.4L, Neutrophils (%) (Auto) , Lymphocytes (%) (Auto) , Monocytes (%) (Auto) , Eosinophils (%) (Auto) , Basophils (%) (Auto) , Differential Total Cells Counted 100, Neutrophils % ( Manual) 67, Lymphocytes % (Manual) 19L, Monocytes % (Manual) 11H, Eosinophils % (Manual) 3, Basophils % (Manual) 0, Band Neutrophils 0, Platelet Estimate Adequate, Platelet Morphology Normal, Troponin I 0.015 01/12/19 05:30: White Blood Count 4.1L, Red Blood Count 2.35L, Hemoglobin 7.8L, Hematocrit 23.0L , Mean Corpuscular Volume 98, Mean Corpuscular Hemoglobin 33.1H, Mean Corpuscular Hemoglobin Concent 33.9, Red Cell Distribution Width 19.3H, Platelet Count 194, Mean Platelet Volume 6.9, Neutrophils (%) (Auto) , Lymphocytes (%) (Auto) , Monocytes (%) (Auto) , Eosinophils (%) (Auto) , Basophils (%) (Auto) , Neutrophils % (Manual) [Pending], Lymphocytes % (Manual) [Pending], Platelet Estimate [Pending], Platelet Morphology [Pending], Sodium Level 136, Potassium Level 5.4H, Chloride Level 98, Carbon Dioxide Level 28, Anion Gap 10, Blood Urea Nitrogen 48H, Creatinine 5.7H, Estimat Glomerular Filtration Rate , Glucose Level 84, Calcium Level 7.3L Height (Feet): 5 Height (Inches): 5.00 Weight (Pounds): 154 General Appearance: no apparent distress, alert EENT: normal ENT inspection Neck: normal alignment Cardiovascular: normal rate Respiratory/Chest: lungs clear Abdomen: non tender, soft Extremities: no edema 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
[2019-01-12 08:00] VITALS: BP 105/52
--- NOTE | 2019-01-12 08:14 | NUR ---
NURSE NOTES: Patient awake, alert x4; on room air, no sing of distress and shortness of breath; no sing of chest pain; IV Left-For arm 20G flushes well; Hemodialysis access Right-Upper PermCath, patient scheduled for dialysis today with [facility], according to the report from PM nurse, AM nurse from yesterday spoke with Dayanna regarding this schedule; patient stated that didn't urinate last night and she feels like urinating but didn't urinate, I received order from Dr Brice to do bladder scan, will carry the order as order given; side rails x2, breaks engaged, bed at lowest position; will keep monitoring.
[2019-01-12] MEDS: Carvedilol 6.25mg Tab ORAL SCH ×2 (09:00→20:37)
--- NOTE | 2019-01-12 10:00 | NUR ---
NURSE NOTES: Blader scan done, noticed 250 Ml.
[2019-01-12] MEDS: Aspirin EC 81mg tab ORAL SCH (10:12)
[2019-01-12] MEDS: Allopurinol 100mg Tab ORAL SCH (10:13)
[2019-01-12] MEDS: Docusate 100mg cap ORAL SCH (10:13)
[2019-01-12 12:00] VITALS: BP 140/64
--- NOTE | 2019-01-12 13:02 | Infectious Diseases Prog Note ---
Assessment/Plan Assessment/Plan A 1. Pyuria/ UTI treated 2. renal failure on dialysis 3. diabetes mellitus 4. hypertension 5. Anemia P 1. Discontinue ceftriaxone Subjective ROS Limited/Unobtainable: Yes Constitutional: Denies: fever Allergies: Coded Allergies: PENICILLINS (Unverified Allergy, Unknown, 10/29/17) Uncoded Allergies: PENICILLIN (Allergy, Unknown, 10/28/17) Objective Vital Signs Last 24 Hour Vital Signs Date Time Temp Pulse Resp B/P (MAP) Pulse Ox O2 Delivery O2 Flow Rate FiO2 01/12/19 08:00 99.1 83 20 105/52 (69) 99 01/12/19 04:00 98.9 71 16 129/58 (81) 98 01/12/19 00:00 99.0 81 16 107/46 (66) 100 01/11/19 21:00 Room Air 01/11/19 20:46 86 131/56 01/11/19 20:00 99.1 86 16 131/56 (81) 99 01/11/19 16:00 98.1 78 20 111/55 (73) 97 Height (Feet): 5 Height (Inches): 5.00 Weight (Pounds): 154 General Appearance: no acute distress HEENT: mucous membranes moist Respiratory/Chest: lungs clear Cardiovascular: normal rate, other - Permacath Abdomen: soft, non tender Extremities: no edema Laboratory Tests Test 01/12/19 05:30 White Blood Count 4.1 K/UL (4.8-10.8) L Red Blood Count 2.35 M/UL (4.20-5.40) L Hemoglobin 7.8 G/DL (12.0-16.0) L Hematocrit 23.0 % (37.0-47.0) L Mean Corpuscular Volume 98 FL (80-99) Mean Corpuscular Hemoglobin 33.1 PG (27.0-31.0) H Mean Corpuscular Hemoglobin Concent 33.9 G/DL (32.0-36.0) Red Cell Distribution Width 19.3 % (11.6-14.8) H Platelet Count 194 K/UL (150-450) Mean Platelet Volume 6.9 FL (6.5-10.1) Neutrophils (%) (Auto) % (45.0-75.0) Lymphocytes (%) (Auto) % (20.0-45.0) Monocytes (%) (Auto) % (1.0-10.0) Eosinophils (%) (Auto) % (0.0-3.0) Basophils (%) (Auto) % (0.0-2.0) Differential Total Cells Counted 100 Neutrophils % (Manual) 51 % (45-75) Lymphocytes % (Manual) 32 % (20-45) Monocytes % (Manual) 7 % (1-10) Eosinophils % (Manual) 10 % (0-3) H Basophils % (Manual) 0 % (0-2) Band Neutrophils 0 % (0-8) Nucleated Red Blood Cells 1 /100 WBC Platelet Estimate Adequate Platelet Morphology Normal Anisocytosis 1+ Sodium Level 136 MMOL/L (136-145) Potassium Level 5.4 MMOL/L (3.5-5.1) H Chloride Level 98 MMOL/L (98-107) Carbon Dioxide Level 28 MMOL/L (21-32) Anion Gap 10 mmol/L (5-15) Blood Urea Nitrogen 48 mg/dL (7-18) H Creatinine 5.7 MG/DL (0.55-1.30) H Estimat Glomerular Filtration Rate mL/min (>60) Glucose Level 84 MG/DL (74-106) Calcium Level 7.3 MG/DL (8.5-10.1) L Current Medications Medications (Trade) Dose Ordered Sig/Eduard Route PRN Reason Start Time Stop Time Status Last Admin Dose Admin Acetaminophen/ Codeine Phosphate (Tylenol #3) 1 tab Q6H PRN ORAL For Pain 01/10/19 14:42 01/17/19 14:41 01/12/19 02:34 Allopurinol (Zyloprim) 100 mg DAILY ORAL 01/11/19 09:00 02/08/19 08:59 01/12/19 10:13 Amlodipine Besylate (Norvasc) 5 mg DAILY ORAL 01/11/19 09:00 02/08/19 08:59 Aspirin (Ecotrin) 81 mg DAILY ORAL 01/11/19 09:00 02/08/19 08:59 01/12/19 10:12 Carvedilol (Coreg) 6.25 mg EVERY 12 HOURS ORAL 01/10/19 21:00 02/08/19 01:14 01/11/19 20:46 Ceftriaxone Sodium 1 gm/ Dextrose 55 ml @ 110 mls/hr Q24H IVPB 01/10/19 20:00 01/16/19 19:59 01/11/19 20:59 Clopidogrel Bisulfate (Plavix) 75 mg DAILY ORAL 01/11/19 09:00 02/10/19 08:59 01/12/19 10:13 Docusate Sodium (Colace) 100 mg DAILY ORAL 01/11/19 09:00 02/08/19 08:59 01/12/19 10:13 Epoetin Masood (Epoetin Masood(ESRD on dialysis)) 2,000 unit SUBQ 01/10/19 21:00 02/09/19 20:59 01/10/19 20:52 Epoetin Masood (Epoetin Masood(ESRD on dialysis)) 3,000 unit SUBQ 01/10/19 21:00 02/09/19 20:59 01/10/19 20:52 Gabapentin (Neurontin) 100 mg BID ORAL 01/10/19 18:00 02/08/19 01:14 01/12/19 10:13 Heparin Sodium (Porcine) (Heparin Sod 1000 units/ml 10ml) 500 unit ONCE PRN IV dialysis 01/12/19 06:00 01/12/19 23:59 Levothyroxine Sodium (Synthroid) 25 mcg DAILY@0630 ORAL 01/11/19 06:30 02/08/19 06:29 01/12/19 06:02 Ondansetron HCl (Zofran) 4 mg Q6H PRN IVP Nausea & Vomiting 01/10/19 18:45 02/08/19 00:44 Pravastatin Sodium (Pravachol) 40 mg BEDTIME ORAL 01/10/19 21:00 02/08/19 20:59 01/11/19 20:43 Sodium Chloride 1,000 ml @ 500 mls/hr Q2H PRN IVLG sbp<90 during hd 01/12/19 06:00 01/12/19 23:59 Rip Sanchez MD Jan 12, 2019 13:02
--- NOTE | 2019-01-12 14:41 | General Progress Note ---
Assessment/Plan Problem List: (1) GIB (gastrointestinal bleeding) ICD Codes: K92.2 - Gastrointestinal hemorrhage, unspecified SNOMED: 13514762 (2) CAD (coronary artery disease) ICD Codes: I25.10 - Atherosclerotic heart disease of [place] coronary artery without angina pectoris SNOMED: 78220314 (3) HTN (hypertension) ICD Codes: I10 - Essential (primary) hypertension SNOMED: 66194289 (4) DM2 (diabetes mellitus, type 2) ICD Codes: E11.9 - Type 2 diabetes mellitus without complications SNOMED: 92805409 (5) UTI (urinary tract infection) ICD Codes: N39.0 - Urinary tract infection, site not specified SNOMED: 01420119 Qualifiers: Qualified Codes: N30.00 - Acute cystitis without hematuria (6) Symptomatic anemia ICD Codes: D64.9 - Anemia, unspecified SNOMED: 538268562 (7) Episode of generalized weakness ICD Codes: R53.1 - Weakness SNOMED: 32126550 Status: stable Assessment/Plan: transfuse monitor for bleeding check stool ob iv abx HD per renal antiplt rx on hold Subjective ROS Limited/Unobtainable: No Constitutional: Reports: malaise, weakness HEENT: Reports: no symptoms Cardiovascular: Reports: no symptoms Respiratory: Reports: no symptoms Gastrointestinal/Abdominal: Reports: no symptoms Genitourinary: Reports: no symptoms Neurologic/Psychiatric: Reports: no symptoms Endocrine: Reports: no symptoms Hematologic/Lymphatic: Reports: anemia Allergies: Coded Allergies: PENICILLINS (Unverified Allergy, Unknown, 10/29/17) Uncoded Allergies: PENICILLIN (Allergy, Unknown, 10/28/17) All Systems: reviewed and negative except above Subjective no new complaints. no cps/ob. iv abx dcd. no bleeding noted. h/h still low. refusing endoscopy. Objective Last 24 Hour Vital Signs Date Time Temp Pulse Resp B/P (MAP) Pulse Ox O2 Delivery O2 Flow Rate FiO2 01/12/19 12:00 97.7 76 18 140/64 (89) 97 01/12/19 09:00 Room Air 01/12/19 08:00 99.1 83 20 105/52 (69) 99 01/12/19 04:00 98.9 71 16 129/58 (81) 98 01/12/19 00:00 99.0 81 16 107/46 (66) 100 01/11/19 21:00 Room Air 01/11/19 20:46 86 131/56 01/11/19 20:00 99.1 86 16 131/56 (81) 99 01/11/19 16:00 98.1 78 20 111/55 (73) 97 Intake and Output 01/11/19 01/12/19 19:00 07:00 Intake Total 480 ml 110 ml Balance 480 ml 110 ml Intake Oral 480 ml IV Total 110 ml # Voids 1 1 # Bowel Movements 1 Laboratory Tests 01/12/19 05:30: White Blood Count 4.1L, Red Blood Count 2.35L, Hemoglobin 7.8L, Hematocrit 23.0L , Mean Corpuscular Volume 98, Mean Corpuscular Hemoglobin 33.1H, Mean Corpuscular Hemoglobin Concent 33.9, Red Cell Distribution Width 19.3H, Platelet Count 194, Mean Platelet Volume 6.9, Neutrophils (%) (Auto) , Lymphocytes (%) (Auto) , Monocytes (%) (Auto) , Eosinophils (%) (Auto) , Basophils (%) (Auto) , Differential Total Cells Counted 100, Neutrophils % ( Manual) 51, Lymphocytes % (Manual) 32, Monocytes % (Manual) 7, Eosinophils % ( Manual) 10H, Basophils % (Manual) 0, Band Neutrophils 0, Nucleated Red Blood Cells 1, Platelet Estimate Adequate, Platelet Morphology Normal, Anisocytosis 1+ , Sodium Level 136, Potassium Level 5.4H, Chloride Level 98, Carbon Dioxide Level 28, Anion Gap 10, Blood Urea Nitrogen 48H, Creatinine 5.7H, Estimat Glomerular Filtration Rate , Glucose Level 84, Calcium Level 7.3L Height (Feet): 5 Height (Inches): 5.00 Weight (Pounds): 154 Objective General Appearance: WD/WN, alert Neck: supple Cardiovascular: regular rhythm Respiratory/Chest: lungs clear Abdomen: normal bowel sounds, non tender, soft, no organomegaly Edema: no edema noted Arm (L), no edema noted Arm (R), no edema noted Leg (L), no edema noted Leg (R), no edema noted Pedal (L), no edema noted Pedal (R), no edema noted Generalized William Wiley MD Jan 12, 2019 14:41
--- NOTE | 2019-01-12 15:46 | NUR ---
CASE MANAGEMENT:REVIEW 01/12/19 SI: GIB. SYMPTOMATIC ANEMIA. UTI 97.7 76 18 140/64 97% ON RA H/H-7.8/23.0 K+5.4 BUN+48 CR+5.7 IS: IV ROCEPHIN Q24 NORVASC PO QD ASA PO QD PLAVIX PO QD COREG PO Q12 : MED/SURG 4 EAST DCP: FROM HOME....OUTPATIENT DIALYSIS PLAN: TRANSFUSE 1 UNIT PRBC
[2019-01-12 16:00] VITALS: BP 142/62
--- NOTE | 2019-01-12 17:30 | NUR ---
NURSE NOTES: Patient received Hemodialysis, removed 2.5 Liter; patient also received PRC, no reaction for the transfusion.
--- NOTE | 2019-01-12 18:20 | NUR ---
NURSE NOTES: Bladder scan done, noticed 107 mL.
--- NOTE | 2019-01-12 19:19 | NUR ---
HAND-OFF: Report given to KITTY Romero.
--- NOTE | 2019-01-12 19:20 | NUR ---
NURSE NOTES: Pt received in bed awake alert able to make needs known, call light within reach, no c/o pain or signs of distress at the moment, head of bed elevated, call light within reach, will continue to monitor.
[2019-01-12 20:00] VITALS: BP 109/50
[2019-01-12] MEDS: Epoetin Alfa-EPBX(ESRD on dialysis)2000 units/ml vial SUBQ SCH (20:37)
[2019-01-12] MEDS: Epoetin Alfa-EPBX(ESRD on dialysis)3000 units/ml vial SUBQ SCH (20:38)
--- NOTE | 2019-01-12 23:34 | General Progress Note ---
Assessment/Plan Status: stable Assessment/Plan: Assessment - symptomatic anemia, presumed acute - anemia, likely in part due to CRF - abnormal U/A - ESRD / HD Recommendations - laxative PRN - PPI - check stool OB - neg so fare - transfusion PRN - EGD / colon cancelled per pt refusal Subjective Allergies: Coded Allergies: PENICILLINS (Unverified Allergy, Unknown, 10/29/17) Uncoded Allergies: PENICILLIN (Allergy, Unknown, 10/28/17) Subjective seen this am tolerating PO Objective Last 24 Hour Vital Signs Date Time Temp Pulse Resp B/P (MAP) Pulse Ox O2 Delivery O2 Flow Rate FiO2 01/12/19 21:00 Room Air 01/12/19 20:37 99 109/50 01/12/19 20:00 98.8 99 21 109/50 (69) 95 01/12/19 16:00 97.3 84 16 142/62 (88) 95 01/12/19 12:00 97.7 76 18 140/64 (89) 97 01/12/19 09:00 Room Air 01/12/19 08:00 99.1 83 20 105/52 (69) 99 01/12/19 04:00 98.9 71 16 129/58 (81) 98 01/12/19 00:00 99.0 81 16 107/46 (66) 100 Intake and Output 01/11/19 01/12/19 19:00 07:00 Intake Total 480 ml 110 ml Balance 480 ml 110 ml Intake Oral 480 ml IV Total 110 ml # Voids 1 1 # Bowel Movements 1 Laboratory Tests 01/12/19 05:30: White Blood Count 4.1L, Red Blood Count 2.35L, Hemoglobin 7.8L, Hematocrit 23.0L , Mean Corpuscular Volume 98, Mean Corpuscular Hemoglobin 33.1H, Mean Corpuscular Hemoglobin Concent 33.9, Red Cell Distribution Width 19.3H, Platelet Count 194, Mean Platelet Volume 6.9, Neutrophils (%) (Auto) , Lymphocytes (%) (Auto) , Monocytes (%) (Auto) , Eosinophils (%) (Auto) , Basophils (%) (Auto) , Differential Total Cells Counted 100, Neutrophils % ( Manual) 51, Lymphocytes % (Manual) 32, Monocytes % (Manual) 7, Eosinophils % ( Manual) 10H, Basophils % (Manual) 0, Band Neutrophils 0, Nucleated Red Blood Cells 1, Platelet Estimate Adequate, Platelet Morphology Normal, Anisocytosis 1+ , Sodium Level 136, Potassium Level 5.4H, Chloride Level 98, Carbon Dioxide Level 28, Anion Gap 10, Blood Urea Nitrogen 48H, Creatinine 5.7H, Estimat Glomerular Filtration Rate , Glucose Level 84, Calcium Level 7.3L Height (Feet): 5 Height (Inches): 5.00 Weight (Pounds): 153 Objective WDWN NCAT supple CTA RR abd soft ND NT no edema Chavez Silvestre MD Jan 12, 2019 23:34
[2019-01-13] VITALS: BP 139/69
--- NOTE | 2019-01-13 02:30 | Progress Note ---
DATE: 01/12/2019 CARDIOLOGY PROGRESS NOTE SUBJECTIVE: No new complaints. Remains without signs of bleeding, but recurrently low hemoglobin levels requiring transfusion. Denies shortness of breath. No chest pain. OBJECTIVE: VITAL SIGNS: Blood pressure 109/58, pulse 99, respirations 21, and afebrile. LUNGS: Clear. CARDIAC: Regular rhythm and rate. Normal S1, S2. ABDOMEN: Soft. EXTREMITIES: No edema. Right IJ catheter site is clean and dry. LABORATORY DATA: White count 4.1, hemoglobin 7.8. IMPRESSION: 1. Urinary tract infection, recovered. 2. End-stage renal disease, on dialysis. 3. Anemia of chronic kidney disease with no signs of active bleeding required transfusions. 4. Hypertensive heart disease. 5. Acute on chronic diastolic congestive heart failure. 6. Degenerative valve disease with mild regurgitation. 7. Coronary artery disease, status post coronary stent. 8. Cerebrovascular disease. PLAN: 1. Hemodialysis with ultrafiltration for volume management. 2. Epogen and iron replacement. 3. Off antimicrobials. 4. The patient refuses panendoscopy. 5. Maintain anti-platelet therapy. 6. Continue beta-gerald, titrate based on clinical parameters. Angel Mahan M.D. DR: EBONY JOB#: [id number] CC:
[2019-01-13 04:00] VITALS: BP 129/65
--- NOTE | 2019-01-13 06:15 | NUR ---
NURSE NOTES: Pt bladder scan results 93ml. Orthostatic vitals this morning standing 146/57 108hr, sitting 144/80 80hr, lying 139/69 79hr
[2019-01-13] MEDS: Levothyroxine 25mcg tab ORAL SCH (06:16)
--- NOTE | 2019-01-13 07:20 | NUR ---
HAND-OFF: Report given to KITTY Manuel.
[2019-01-13 08:00] VITALS: BP 114/49
[2019-01-13 08:06] LABS: BASOPHILS % (AUTO) 1.3 % (0.0-2.0); EOSINOPHILS % (AUTO) 9.4 % (0.0-3.0); HEMATOCRIT 29.4 % (37.0-47.0); HEMOGLOBIN 9.8 G/DL (12.0-16.0); LYMPHOCYTES % (AUTO) 25.5 % (20.0-45.0); MEAN CORPUSCULAR VOLUME 95 FL (80-99); MONOCYTES % (AUTO) 10.5 % (1.0-10.0); NEUTROPHILS % (AUTO) 53.3 % (45.0-75.0); PLATELET COUNT 202 K/UL (150-450); RED BLOOD COUNT 3.08 M/UL (4.20-5.40); RED CELL DISTRIBUTION WIDTH 18.7 % (11.6-14.8)
--- NOTE | 2019-01-13 08:07 | NUR ---
NURSE NOTES: Patient awake and alert,respirations unlabored.Patient state she is feeling better.Patient ate breakfast.patient state she is ready to go home.Will follow up.Bed alarm is on,call light within reach.
[2019-01-13] MEDS: Carvedilol 6.25mg Tab ORAL SCH (09:00)
--- NOTE | 2019-01-13 09:31 | Nephrology Progress Note ---
Assessment/Plan Problem List: (1) Breast cancer (2) End-stage renal disease (3) Episode of generalized weakness (4) Symptomatic anemia (5) GIB (gastrointestinal bleeding) (6) CHF (congestive heart failure) Plan weak, evaluation for gi bleed ongoing, epogen, mild chf on cxr but no sob, hd no difficulty Subjective Constitutional: Reports: weakness HEENT: Reports: no symptoms Genitourinary: Reports: no symptoms Neurologic/Psychiatric: Reports: pre-existing deficit Objective Objective Last 24 Hour Vital Signs Date Time Temp Pulse Resp B/P (MAP) Pulse Ox O2 Delivery O2 Flow Rate FiO2 01/13/19 04:00 96.8 82 21 129/65 (86) 98 01/13/19 00:00 98.4 84 20 139/69 (92) 96 01/12/19 21:00 Room Air 01/12/19 20:37 99 109/50 01/12/19 20:00 98.8 99 21 109/50 (69) 95 01/12/19 16:00 97.3 84 16 142/62 (88) 95 01/12/19 12:00 97.7 76 18 140/64 (89) 97 Intake and Output 01/12/19 01/13/19 18:59 06:59 Intake Total 480 ml 240 ml Output Total 2000 ml Balance 480 ml -1760 ml Intake Oral 480 ml 240 ml Output Hemodialysis UF 2000 ml # Voids 1 3 Laboratory Tests 01/13/19 06:35: White Blood Count 4.0L, Red Blood Count 3.08L, Hemoglobin 9.8L, Hematocrit 29.4L , Mean Corpuscular Volume 95, Mean Corpuscular Hemoglobin 32.0H, Mean Corpuscular Hemoglobin Concent 33.5, Red Cell Distribution Width 18.7H, Platelet Count 202, Mean Platelet Volume 6.5, Neutrophils (%) (Auto) 53.3, Lymphocytes (%) (Auto) 25.5, Monocytes (%) (Auto) 10.5H, Eosinophils (%) (Auto) 9.4H, Basophils (%) (Auto) 1.3 Height (Feet): 5 Height (Inches): 5.00 Weight (Pounds): 153 General Appearance: no apparent distress EENT: normal ENT inspection Neck: normal alignment Cardiovascular: regular rhythm, systolic murmur Respiratory/Chest: lungs clear Abdomen: soft, no organomegaly Extremities: no edema Zeus Brice MD Jan 13, 2019 09:31
[2019-01-13 09:33] VITALS: BP 116/56
[2019-01-13] MEDS: Aspirin EC 81mg tab ORAL SCH (09:42)
[2019-01-13] MEDS: Docusate 100mg cap ORAL SCH (09:43)
[2019-01-13] MEDS: Allopurinol 100mg Tab ORAL SCH (09:47)
[2019-01-13] MEDS ORDERED: SYNTHROID25 MCG ORAL (10:13)
[2019-01-13] MEDS ORDERED: NORVASC5 MG ORAL (10:13)
[2019-01-13] MEDS ORDERED: ASPIRIN EC81 MG ORAL (10:13)
[2019-01-13] MEDS ORDERED: COREG6.25 MG ORAL (10:13)
[2019-01-13] MEDS ORDERED: ALLOPURINOL100 M1 ORAL (10:13)
[2019-01-13] MEDS ORDERED: PLAVIX75 MG ORAL (10:13)
[2019-01-13] MEDS ORDERED: PRAVACHOL20 MG ORAL (10:13)
[2019-01-13] MEDS ORDERED: GABAPENTIN100 MG ORAL (10:13)
--- NOTE | 2019-01-13 11:19 | NUR ---
NURSE NOTES: Patient this AM stated she wanted to go home,and was going to sign out AMA.Patient state she takes chemotherapy medication and has not been on them since being admitted .patient has family members and I asked if they could bring in the medication.patient states she wants to go home,her hospital that she goes to is [facility] and all of her Doctors are at [facility] state she feels fine. DR Wiley aware and a discharge order was given.Patient now voided 25cc of dark bloody urine with a strong odor,DR Wiley made aware and states ok to discharge patient.
[2019-01-13 12:00] VITALS: BP 147/72
--- NOTE | 2019-01-13 14:02 | NUR ---
NURSE NOTES Patient discharge .IV removed,IV hospital band removed.patient has her personal belonging ,patient family member Marisol will take patient patient ,accompany down stairs to private vehicle/Patient has dialysis catheter in the upper right chest remains intact.Skin is intact.
--- NOTE | 2019-01-13 14:38 | Cardiology Report ---
APPROVED REPORT EKG Measurement Heart [id number] Sinus rhythm with occasional premature ventricular complexes and premature atrial complexes Nonspecific ST and T wave abnormality Abnormal ECG
--- NOTE | 2019-01-13 18:16 | General Progress Note ---
Assessment/Plan Status: stable Assessment/Plan: Assessment - symptomatic anemia, presumed acute - anemia, likely in part due to CRF - abnormal U/A - ESRD / HD Recommendations - laxative PRN - PPI - check stool OB - neg so fare - transfusion PRN - EGD / colon cancelled per pt refusal Subjective Allergies: Coded Allergies: PENICILLINS (Unverified Allergy, Unknown, 10/29/17) Uncoded Allergies: PENICILLIN (Allergy, Unknown, 10/28/17) Subjective seen this am tolerating PO for discharge today Objective Last 24 Hour Vital Signs Date Time Temp Pulse Resp B/P (MAP) Pulse Ox O2 Delivery O2 Flow Rate FiO2 01/13/19 12:00 98 18 147/72 (97) 93 01/13/19 09:33 101 116/56 (76) 01/13/19 09:00 101 116/56 01/13/19 09:00 83 114/49 01/13/19 09:00 Room Air 01/13/19 08:00 98.1 83 20 114/49 (70) 100 01/13/19 04:00 96.8 82 21 129/65 (86) 98 01/13/19 00:00 98.4 84 20 139/69 (92) 96 01/12/19 21:00 Room Air 01/12/19 20:37 99 109/50 01/12/19 20:00 98.8 99 21 109/50 (69) 95 Intake and Output 01/12/19 01/13/19 19:00 07:00 Intake Total 480 ml 240 ml Output Total 2000 ml Balance 480 ml -1760 ml Intake Oral 480 ml 240 ml Output Hemodialysis UF 2000 ml # Voids 1 3 Laboratory Tests 01/13/19 06:35: White Blood Count 4.0L, Red Blood Count 3.08L, Hemoglobin 9.8L, Hematocrit 29.4L , Mean Corpuscular Volume 95, Mean Corpuscular Hemoglobin 32.0H, Mean Corpuscular Hemoglobin Concent 33.5, Red Cell Distribution Width 18.7H, Platelet Count 202, Mean Platelet Volume 6.5, Neutrophils (%) (Auto) 53.3, Lymphocytes (%) (Auto) 25.5, Monocytes (%) (Auto) 10.5H, Eosinophils (%) (Auto) 9.4H, Basophils (%) (Auto) 1.3 Height (Feet): 5 Height (Inches): 5.00 Weight (Pounds): 147 Objective WDWN NCAT supple CTA RR abd soft ND NT no edema Chavez Silvestre MD Jan 13, 2019 18:16
--- NOTE | 2019-01-13 18:31 | Progress Note ---
DATE: 01/13/2019 CARDIOLOGY PROGRESS NOTE SUBJECTIVE: The patient without shortness of breath. Dialysis yesterday with ultrafiltration, no complications. She continues on Epogen and iron replacement. No signs of GI blood loss noted. OBJECTIVE: VITAL SIGNS: Blood pressure 129/65, pulse 82, respiratory rate 21, afebrile. LUNGS: Diminished breath sounds. No wheezing or rales. CARDIAC: Regular rhythm and rate. Normal S1, S2 with a 1/6 systolic murmur at base. ABDOMEN: Soft and nontender. PermCath site clean and dry on the right chest. EXTREMITIES: No edema. LABORATORY DATA: White count 4, hemoglobin 9.8. Potassium 5.4, BUN 48, creatinine 5.7. IMPRESSION: 1. Anemia due to chronic disease. 2. Urinary tract infection with sepsis, resolved. 3. End-stage renal disease. 4. Hypertensive heart disease with controlled blood pressure. 5. Acute on chronic diastolic congestive heart failure, compensated. 6. Degenerative valve disease, compensated. 7. Coronary artery disease with history of coronary stent and angina. 8. Cerebrovascular disease. PLAN: 1. Medications reviewed. 2. Outpatient followup arranged including hemodialysis. 3. Discharge cardiovascular medication regimen reviewed and reconciled. Angel Mahan M.D. DR: Audelia JOB#: [id number] CC:
--- NOTE | 2019-01-14 14:23 | Discharge Summary ---
Discharge Summary Discharge Summary _ DATE OF ADMISSION: 01/10/2019 DATE OF DISCHARGE: 01/13/2019 DISCHARGED BY: Dr. Wiley REASON FOR ADMISSION: 83 years old female with past medical history of breast cancer, end-stage renal disease , on hemodialysis, hypertension, diabetes mellitus, peripheral artery disease, hypothyroidism, was brought by family member with complaints of generalized weakness, malaise and near syncopal episode. The night prior to admission she had a near syncopal episode. Patient felt dizzy and weak. Family member tried to bring her to emergency room for evaluation, but she refused. Instead she went to dialysis and after returning home from dialysis again felt weak and nearly passed out. Patient denied fevers or chills. No chest pain. Patient had single episode of nonbilious nonbloody vomiting the night prior to admission . Last bowel movement 2 days ago. Patient denied any melena or bright red blood per rectum. No abdominal pain. Upon evaluation in emergency room laboratory work-up revealed no leukocytosis , hemoglobin 7.3, hematocrit 20.3, platelet count 189. Urinalysis revealed evidence of probable urinary tract infection. l BUN 23, creatinine 2.7. Glucose 174. Troponin 0.029. Lactic acid 2.3, repeated 1.6. Chest x-ray demonstrated no acute cardiopulmonary pathology. In emergency department patient pancultured and started on empiric antibiotic , typed and crossed and admitted to Med Surg floor for further management. CONSULTANTS: coin machine operator Dr. Mahan ID specialist Dr. Rudolph GI specialist Dr. Silvestre cotton expert Dr. Brice HOSPITAL COURSE: Patient admitted and received 1 unit of packed red blood cells. Stool for occult blood was negative. Iron panel revealed stable iron. Patient started on Epogen. Patient started on broad-spectrum antibiotics. Patient received additional 2 units of packed red blood cells for hemoglobin 5.6 and hematocrit 16.8. Hemoglobin and hematocrit were closely monitored. Anemia work-up was consistent with anemia of chronic disease. Prior to discharge hemoglobin 9.8 , hematocrit 29.4. Stool for occult blood was negative. GI specialist closely followed Patient refused panendoscopy. Bowel regimen instituted. GI prophylaxis with PPI provided. ID specialist followed. Blood culture were negative. Urine culture were negative. Patient remained afebrile, no leukocytosis. Patient completed treatment for UTI as per ID specialist recommendations. Hemodialysis with ultrafiltration provided as per cotton expert recommendation . Last hemodialysis on without difficulties. Risk And Insurance Manager closely followed. . Pulse oximetry stable on room air . Patient started on antiplatelet therapy. Beta-gerald continued, based on clinical parameters. Vital signs revealed no evidence of orthostatic changes. Telemetry demonstrated sinus rhythm with occasional premature atrial and premature ventricular contractions. Near syncopal episode was most likely due to acute symptomatic severe anemia. Dual antiplatelet therapy with aspirin and Plavix along with statin continued. Blood pressure was managed with calcium channel gerald. Patient clinically stabilized and was ready for discharge home. FINAL DIAGNOSES: Urinary tract infection with sepsis -resolved Symptomatic anemia Near syncope episode likely due to symptomatic anemia Anemia of chronic kidney disease Hypertensive heart disease Coronary artery disease with history of coronary stent and stable angina Cerebrovascular disease Acute on chronic diastolic congestive heart failure, compensated Diabetes mellitus End-stage renal disease, on hemodialysis History of breast cancer GI bleeding DISCHARGE MEDICATIONS: See Medication Reconciliation list. DISCHARGE INSTRUCTIONS: Patient was discharged home. Follow up with medical doctor in one week I have been assigned to dictate discharge summary for this account. I was not involved in the patient's management. Elsie Jeffery NP Jan 14, 2019 14:23
== END 2019-01-13 14:20 | disposition home or self-care (01) | DRG 871 ==
LOC: EDBD 18:46 → EMR 18:58 → 2E 21:11 → EDBEDREQ 21:16 → 4E 01-10 14:14
PROC: 30233N1 Transfusion of Nonautologous Red Blood Cells into Peripheral Vein, Percutaneous Approach (ICD-10-PCS; principal; 2019-01-09)
PROC: 5A1D70Z Performance of Urinary Filtration, Intermittent, Less than 6 Hours Per Day (ICD-10-PCS; 2019-01-10)
DX: A41.9 Sepsis, unspecified organism (principal); N18.6 End stage renal disease; I50.33 Acute on chronic diastolic (congestive) heart failure; N39.0 Urinary tract infection, site not specified; I13.2 Hypertensive heart and chronic kidney disease with heart failure and with stage 5 chronic kidney disease, or end stage renal disease; K92.2 Gastrointestinal hemorrhage, unspecified; E44.0 Moderate protein-calorie malnutrition; C79.9 Secondary malignant neoplasm of unspecified site; E86.1 Hypovolemia; R55 Syncope and collapse; D63.1 Anemia in chronic kidney disease; E11.22 Type 2 diabetes mellitus with diabetic chronic kidney disease; Z99.2 Dependence on renal dialysis; I25.118 Atherosclerotic heart disease of native coronary artery with other forms of angina pectoris; Z95.5 Presence of coronary angioplasty implant and graft; E11.51 Type 2 diabetes mellitus with diabetic peripheral angiopathy without gangrene; E11.40 Type 2 diabetes mellitus with diabetic neuropathy, unspecified; Z87.891 Personal history of nicotine dependence; E03.9 Hypothyroidism, unspecified; R11.2 Nausea with vomiting, unspecified; Z88.0 Allergy status to penicillin; E21.3 Hyperparathyroidism, unspecified; I25.5 Ischemic cardiomyopathy; I49.1 Atrial premature depolarization; I49.3 Ventricular premature depolarization; C50.919 Malignant neoplasm of unspecified site of unspecified female breast
CPT/HCPCS: 36415; 71045; 80048; 80053; 81003; 82270; 82607; 82746; 82962; 83540; 83550; 83605; 83690; 83880; 84484; 85007; 85025; 86850; 86900; 86901; 86920; 87040; 87086; 93005; 96365; 99285; J1815; J2405